=== PATIENT | male | born 1995 ===

== ENCOUNTER 2020-07-12 18:32 | Outpatient (REF) | payer OTHER, SELFPAY | END 2020-07-12 18:33 | disposition home or self-care (01) | LOC: HO.LNP 18:32 | PROVIDERS: Visit Provider Internal Medicine | DX: Z20.822 Contact with and (suspected) exposure to COVID-19 (principal); J06.9 Acute upper respiratory infection, unspecified | CPT/HCPCS: U0003 ==

== ENCOUNTER 2021-03-12 14:28 | Outpatient (REF) | payer OTHER, SELFPAY ==
[2021-03-12 16:38] LABS: Appearance Urine HAZY; Color Urine YELLOW; Glucose Urine UA NEG (NEG); Leukocyte Esterase Urine NEG (NEG); Nitrite Urine NEG (NEG); Urine Blood NEG (NEG); Urine Ketones NEG (NEG); Urine Protein NEG (NEG-TRACE)
[2021-03-12 18:40] LABS: RBC Urine 0 /HPF (0); Squamous Epithelial Cell Urine TRACE /LPF; WBC Urine 0 /HPF (0-4)
[2021-03-12 18:41] LABS: Mucus Urine 4+ /LPF
== END 2021-03-12 14:29 | disposition home or self-care (01) ==
LOC: HO.HMGCLNP 14:28
PROVIDERS: Visit Provider Internal Medicine
DX: R20.8 Other disturbances of skin sensation (principal)
CPT/HCPCS: 81001

== ENCOUNTER 2021-03-13 09:23 | Emergency (ER) | payer OTHER, SELFPAY ==
--- NOTE | ~2021-03-13 | CT_ITS ---
EXAMINATION: CT ABDOMEN AND PELVIS WITH CONTRAST CLINICAL INFORMATION: Right lower quadrant pain. Diarrhea for 3 to 4 days. Minimal free fluid ultrasound. COMPARISON: None TECHNIQUE: Multidetector volumetric images were obtained from the superior aspect of the liver through the pubic symphysis following administration 85 mL of Omnipaque 350 intravenous contrast. Sagittal and coronal reformatted images were obtained on the technologist's workstation. Oral contrast: No This CT examination was performed using dose optimization techniques as appropriate, variously including the following: *Automated exposure control *Adjustment of mA and/or kV according to patient size (this includes techniques or standardized protocols for targeted exams where dose is matched to indication/reason for exam; i.e. extremities or head) *Use of iterative reconstruction technique DLP: 334 mGy-cm FINDINGS: LUNG BASES: The lung bases are clear. The heart size is normal. LIVER, GALLBLADDER, AND BILIARY TREE: The liver is normal in size, shape, and attenuation. No focal hepatic lesion or biliary ductal dilatation is present. The gallbladder is unremarkable with no evidence of radiopaque gallstones, gallbladder wall thickening, or obvious pericholecystic inflammatory changes. PANCREAS: Unremarkable. SPLEEN: Unremarkable. ADRENAL GLANDS: Unremarkable. KIDNEYS AND URETERS: The kidneys are normal in size, shape, and attenuation. No hydronephrosis, hydroureter, or calculi seen. No perinephric stranding. BLADDER: Unremarkable. GASTROINTESTINAL TRACT: Mildly dilated fluid-filled loop of small bowel/distal ileum is seen extending to the ileocecal junction. Nonspecific minimal mural thickening seen involving the distal ileum and coronal image 29/7. This could be secondary to inflammatory infectious etiology. Appendix is not seen. There is no free fluid seen at this time. Free fluid seen on ultrasound likely was a dilated fluid-filled small bowel loops. Appendix is not visualized. Moderate stool is seen throughout the colon. The ileocecal valve is best visualized on sagittal image 74/8 ABDOMINAL WALL: No significant hernia is appreciated. LYMPH NODES: Small shotty lymph nodes are seen in the ileocecal mesentery VASCULAR: Unremarkable. PELVIC VISCERA: Unremarkable. OSSEOUS STRUCTURES: Unremarkable. CT/CT abdomen pelvis w con IMPRESSION: Slightly prominent fluid-filled distal ileal small bowel loops with mild mural thickening involving the terminal ileum, suspicious for inflammatory or infectious etiology. There are small reactive lymph nodes. There is moderate constipation. No free fluid is seen at this time. There are fluid-filled small bowel loops surrounding the cecum in the pelvis. Appendix is not seen. No fat stranding seen to suspect any inflammatory changes in the mesentery. Consider follow-up exam in one to 2 weeks with oral contrast to evaluate small bowel inflammatory or infectious etiology.
--- NOTE | ~2021-03-13 | US_ITS ---
EXAMINATION: ULTRASOUND APPENDIX: CLINICAL INFORMATION: Right lower quadrant pain. COMPARISON: None TECHNIQUE: Limited imaging through the right lower quadrant is performed. FINDINGS: Appendix is not visualized. There is moderate stool seen in cecum and ascending colon. Peristaltic bowel loops are visualized as well. Small amount of free fluid is visualized is well surrounding the cecum. US/US appendix IMPRESSION: Minimal free fluid in the right lower quadrant with appendix not visualized. Appendicitis cannot be excluded. The large amount of stool in the right colon and the cecum region with peristaltic bowel.
[2021-03-13 09:31] VITALS: BP 141/87; PULSE 72; RESP 16; O2SAT 99; BMI 21.4
--- NOTE | 2021-03-13 09:50 | ED_ITS ---
HPI - Back Pain/Injury General Chief Complaint: Back Pain/Injury Stated Complaint: BACK PAIN Time Seen by Provider: 03/13/21 09:36 Source: patient Mode of arrival: ambulatory Limitations: no limitations History of Present Illness HPI Narrative: 25 y/o female with no medical problems presents to the ER with multiple complaints. He reports on Wednesday he started having intermittnet RLQ pain. He was seen at Urgent Care, had a negative UA and sent home. The pain still come and goes but it is overall better. He also reports worsening back pain, starting from his posterior shoulders and going all the way down his back, worse with movement. When he laid down last night he had 5 minutes of his toes tingling like they were asleep, now resolved. He denies any injuries. No fevers, chills, N/V/D, or urinary symptoms. 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 MD elicited complaint: back pain Onset (ago): day(s) (3) Timing: progressively worsening Severity: moderate Similar Symptoms Previously: No Quality: aching and spasming Location: right lower back, right upper back, left upper back and left lower back Radiation: none Exacerbating factors: movement Relieving factors: immobilization and supine Context: unknown Associated symptoms: abdominal pain Work related injury: No Related Data Previous Rx's Medication Instructions Recorded cyclobenzaprine 5 mg tablet 5 mg PO TID PRN #8 tab 03/13/21 ibuprofen 100 mg/5 mL oral 600 mg PO Q8H PRN #400 ml 03/13/21 suspension lidocaine 5 % topical patch 1 patch TOPICAL DAILY #15 ea 03/13/21 (Lidoderm) Allergies Allergy/AdvReac Type Severity Reaction Status Date / Time No Known Allergies Allergy Verified 07/12/20 16:22 [No Known Allergies*] Review of Systems Review of Systems: Constitutional: No Fever, No Chills ENT/Mouth: No sore throat, No Rhinorrhea, No Swallowing Difficulty Cardiovascular: No Chest Pain, No SOB, No Orthopnea, No Edema Respiratory: No Cough, No Sputum, No Wheezing, No dyspnea Gastrointestinal: No Nausea, No Vomiting, + Diarrhea, + abdominal Pain, No Hematochezia, No Melena Genitourinary: No Dysuria, No Urinary Frequency, No Hematuria Musculoskeletal: No joint pain, + Myalgias Skin: No Skin Lesions, No rash Neuro: No Weakness, + Numbness, No Dizziness, No Headache Psych: No Anxiety/Panic, No Depression Heme/Lymph: No Bruising, No Lymphadenopathy Endocrine: No Polyuria, No Polydipsia PMF Past Medical History Medical History (Updated 03/13/21 @ 12:17 by ARABELLA Flores) No known health problems Social History Social History (Updated 07/12/20 @ 16:22 by Ashanti Carrera CMA) Alcohol intake: current Alcohol intake frequency: a few times a month Advance Directives: No Physical Exam Vital Signs: Vital Signs: Last Vital Signs Temp 98.0 F 03/13/21 11:28 Pulse 74 03/13/21 11:28 Resp 18 03/13/21 11:28 BP 126/84 03/13/21 11:28 Pulse Ox 99 03/13/21 11:28 Body Mass Index 21.4 Appearance: Alert. Oriented X3. No acute distress. Eyes: Pupils equal, round and reactive to light. ENT: Pharynx normal. Neck: Normal inspection. Neck supple. CVS: Normal heart rate and rhythm. Pulses normal. Respiratory: No respiratory distress. Breath sounds normal. Abdomen: Soft with mild tenderness to RLQ to deep palpation, no rebound or guarding. +BS x4 Back: no CVA tenderness. soft tissue tenderness of the paraspinous muscles. no spinal tenderness. normal ROM. Skin: Skin warm and dry. Normal skin color. Normal skin turgor. No rashes. Extremities: No lower extremity edema. Neuro: Oriented X 3. No motor deficit. No sensory deficit. Steady gait. Course Course Course Narrative: 25 y/o male presenting with RLQ pain and back pains since Wednesday. No N/V or fevers. Tender to deep palpation only. Doubt acute appenditicis but will get basic labs to start and look for leukocytosis as well as appendix U/S, he is thin. His back pain seems to be muscular in nature with paraspinous muscle tenderness. No limits in ROM. No neck pain. He appears well. Reevaluation(s) Reevaluation #1: Appendix U/S showing some free fluid cannot visualize the appendix. CT scan ordered. Reevaluation #2: Spoke with Dr. Gray - terminal ileum thickening with constipation and some fluid filled loops of small bowel. ?Crohn's disease. Results discussed with patient and mom at the bedside. He has had no bloody BM's, vomiting. Will refer to GI for further workup. They will call today to arrange an appointment. Stable for discharge. MDM - Back Pain/Injury Lab Data Result diagrams: 03/13/21 10:03 03/13/21 10:03 Labs: Lab Results 03/13/21 03/13/21 Range/Units 10:03 10:03 WBC 8.0 (4.8-10.8) X10*3/uL RBC 5.09 (4.60-5.80) X10*6/uL Hgb 14.7 (14.0-18.0) g/dl Hct 44.6 (42-52) % MCV 87.6 (80-98) fL MCH 28.9 (27.0-33.0) pg MCHC 33.0 (31.0-36.0) g/dl RDW 12.8 (11.0-16.0) % Plt Count 234 (160-400) X10*3/uL MPV 10.2 (9.4-12.4) fL Immature Gran % (Auto) 0.2 (0.0-0.4) % Neut % (Auto) 67.9 (45-73) % Lymph % (Auto) 18.0 L (20-40) % [place] % (Auto) 12.6 H (2-11) % Eos % (Auto) 1.2 (0-4) % Baso % (Auto) 0.1 (0-2) % Lymph # (Auto) 1.4 (1.2-4.9) X10*3/uL [place] # (Auto) 1.0 (0.1-1.2) X10*3/uL Eos # (Auto) 0.1 (0.0-0.4) X10*3/uL Baso # (Auto) 0.0 (0.0-0.2) X10*3/uL Abs Immat Gran (auto) 0.02 (0.00-0.03) X10*3/uL Absolute Neuts (auto) 5.4 (2.0-8.3) X10*3/uL Absolute Nucleated RBC 0.000 (0.0-0.012) X10*3/uL Nucleated RBC % (auto) 0.0 (0.0-0.2) /100WBC Sodium 138 (135-145) mmol/L Potassium 4.3 (3.3-5.1) mmol/L Chloride 104 (96-108) mmol/L Carbon Dioxide 28 (22-29) mmol/L Anion Gap 10 L (12-20) BUN 13 (9-16) mg/dL Creatinine 0.83 (0.5-1.4) mg/dL Estim Creat Clear Calc 115.0 Estimated GFR > 60 Random Glucose 88 (60-115) mg/dL Calcium 9.8 (8.4-10.2) mg/dL Total Bilirubin 0.6 (0.0-1.0) mg/dL Direct Bilirubin 0.2 (0.0-0.5) mg/dL AST 17 (5-37) U/L ALT 13 (0-40) U/L Alkaline Phosphatase 56 (39-117) U/L Total Protein 7.4 (6.5-8.0) g/dL Albumin 4.4 (3.5-5.0) g/dL Discharge Plan Discharge Clinical Impression: Abnormal computed tomography of cecum and terminal ileum, Muscle strain of upper back Patient Disposition: Home, Self-Care Instructions: Abdominal Pain (ED), Musculoskeletal Pain (ED) Additional Instructions: Your CT scan showed thickening of a portion of your small bowel. This can be seen inflammatory bowel disease like Crohn's. You need to be further evaluated for this by GI Specialist, name and number listed below. Your CT scan also showed moderate constipation - recommend trial of Miralax, found over the counter. Your back pain is muscular. No bending, lifting or twisting. Use ice several times per day for 20 minutes at a time for the next 48 hours and then change to heat. Take medications as prescribed to help with pain and discomfort. Follow up with your Primary Care Doctor this week. If you develop new or worsening symptoms call 911 or come back to the ER for further evaluation. Prescriptions: New cyclobenzaprine 5 mg tablet 5 mg PO TID PRN (Reason: muscle spasm) Qty: 8 RF: 0 ibuprofen 100 mg/5 mL suspension 600 mg PO Q8H PRN (Reason: pain) Qty: 400 RF: 0 lidocaine [Lidoderm] 5 % adhesive patch,medicated 1 patch topical DAILY Qty: 15 RF: 0 Referrals: Toan Morelos [Physician] - 2 days (abdominal pain abnormal CT - terminal ileum thickening concern for Crohn's) Stand Alone Forms: Work/School Release Interventions: ED Discharge Assessment Last Done: 03/13/21 12:37 Discharge Date/Time: 03/13/21 12:37
[2021-03-13 10:06] LABS: MANUAL DIFF FLAG NO
[2021-03-13 10:09] LABS: Basophils Percent Auto 0.1 % (0-2); Eosinophils Absolute Auto 0.1 X10*3/uL (0.0-0.4); Eosinophils Percent Auto 1.2 % (0-4); Hematocrit 44.6 % (42-52); Hemoglobin 14.7 g/dl (14.0-18.0); Imm Gran Abs Auto 0.02 X10*3/uL (0.00-0.03); Imm Gran Pct Auto 0.2 % (0.0-0.4); Lymphocytes Absolute Auto 1.4 X10*3/uL (1.2-4.9); Mean Corpuscular Hemoglobin 28.9 pg (27.0-33.0); Mean Corpuscular Volume 87.6 fL (80-98); Mean Platelet Volume 10.2 fL (9.4-12.4); Monocytes Percent Auto 12.6 % (2-11); Neutrophils Absolute Auto 5.4 X10*3/uL (2.0-8.3); Neutrophils Percent Auto 67.9 % (45-73); Platelet Count 234 X10*3/uL (160-400); Red Blood Count 5.09 X10*6/uL (4.60-5.80); Red Cell Distribution Width 12.8 % (11.0-16.0)
[2021-03-13 10:24] LABS: Alanine Aminotransferase 13 U/L (0-40); Albumin Level 4.4 g/dL (3.5-5.0); Alkaline Phosphatase 56 U/L (39-117); Anion Gap 10 (12-20); Aspartate Amino Transferase 17 U/L (5-37); Bilirubin Direct 0.2 mg/dL (0.0-0.5); Bilirubin Total 0.6 mg/dL (0.0-1.0); Blood Urea Nitrogen 13 mg/dL (9-16); Calcium 9.8 mg/dL (8.4-10.2); Carbon Dioxide 28 mmol/L (22-29); Chloride 104 mmol/L (96-108); Estimated Glomerular Filt Rate > 60; Glucose Random 88 mg/dL (60-115); Potassium 4.3 mmol/L (3.3-5.1); Sodium 138 mmol/L (135-145); Total Protein 7.4 g/dL (6.5-8.0)
--- NOTE | 2021-03-13 10:51 | PC.NURSE ---
PT PRESENTING WITH RLQ ABD PAIN 4/10. NO NAUSEA OR VOMITING.
[2021-03-13 11:28] VITALS: BP 126/84; PULSE 74; RESP 18; TEMP 36.7; O2SAT 99
[2021-03-13] MEDS: iohexoL 350 MG/ML 100 ML INFUS..BTL 85 ML IV (11:28)
== END 2021-03-13 12:37 | disposition home or self-care (01) ==
PROVIDERS: Physician Assistant; Emergency Provider Emergency Medicine; PCP Internal Medicine
DX: S29.012A Strain of muscle and tendon of back wall of thorax, initial encounter (principal); R93.3 Abnormal findings on diagnostic imaging of other parts of digestive tract; X50.0XXA Overexertion from strenuous movement or load, initial encounter; Y93.89 Activity, other specified; Y92.63 Factory as the place of occurrence of the external cause; Y99.0 Civilian activity done for income or pay
CPT/HCPCS: 36415; 74177; 76705; 80048; 80076; 85025; 99283; 99284; Q9967

== ENCOUNTER → 2021-06-06 09:19 | Outpatient (BNVA) | payer OTHER, SELFPAY | PROVIDERS: PCP Internal Medicine; Referring Provider Internal Medicine; Visit Provider Internal Medicine Gastroenterology ==

== ENCOUNTER 2021-07-07 09:21 | Outpatient (REF) | payer OTHER, SELFPAY | END 2021-07-07 09:22 | disposition home or self-care (01) | LOC: HO.CT 09:21 | PROVIDERS: PCP Internal Medicine; Visit Provider Internal Medicine Gastroenterology | DX: Z13.89 Encounter for screening for other disorder (principal) ==

== ENCOUNTER 2021-08-11 08:08 | Outpatient (REF) | payer OTHER, SELFPAY ==
--- NOTE | ~2021-08-11 | CT_ITS ---
EXAMINATION: CT ABDOMEN AND PELVIS WITH CONTRAST CLINICAL INFORMATION: IBD COMPARISON: CT abdomen pelvis 03/13/2021 TECHNIQUE: Multidetector volumetric images were obtained from the superior aspect of the liver through the pubic symphysis following administration 85 mL of Omnipaque 350 intravenous contrast. Sagittal and coronal reformatted images were obtained on the technologist's workstation. This CT examination was performed using dose optimization techniques as appropriate, variously including the following: *Automated exposure control *Adjustment of mA and/or kV according to patient size (this includes techniques or standardized protocols for targeted exams where dose is matched to indication/reason for exam; i.e. extremities or head) *Use of iterative reconstruction technique DLP: 211 mGy-cm FINDINGS: Visualized lung bases are well aerated. The liver demonstrates normal size, contour and attenuation. The gallbladder is normal in appearance. The pancreas, spleen and adrenal glands are unremarkable. Symmetrically enhancing kidneys. There is no hydronephrosis of either kidney. Debris-filled stomach. Normal caliber loops of small and large bowel. Colon appears primarily fluid-filled, nonspecific. Normal appendix. Normal caliber abdominal aorta. No gross retroperitoneal lymphadenopathy. The bladder is well-distended and normal in appearance. Prostate gland is normal in size. No gross free pelvic fluid. No inguinal lymphadenopathy. No acute osseous abnormality. CT/CT abdomen pelvis w con IMPRESSION: No CT evidence for acute abnormality within the abdomen or pelvis. Fleischner guidelines were followed.
[2021-08-11] MEDS: iohexoL 350 MG/ML 100 ML INFUS..BTL IV (09:41)
[2021-08-11] MEDS: Sorbitol/Mannit/Xanth Imaging 500 ML LIQUID 1500 ML PO (09:42)
== END 2021-08-11 08:09 | disposition home or self-care (01) ==
LOC: HO.CT 08:08
PROVIDERS: PCP Internal Medicine; Visit Provider Internal Medicine Gastroenterology
DX: K63.9 Disease of intestine, unspecified (principal)
CPT/HCPCS: 74177; Q9967

== ENCOUNTER 2023-07-28 18:11 | Emergency (ER) | payer OTHER, SELFPAY ==
--- NOTE | 2023-07-28 19:03 | ED.MALEGU ---
HPI - Male Genitourinary General Chief complaint: General Medical Stated complaint: groin pain Time Seen by Provider: 07/28/23 22:38 Source: patient Mode of arrival: ambulatory Limitations: no limitations History of Present Illness HPI Narrative: 28-year-old male who presents emergency department for evaluation of left lower quadrant pain nausea and lower back pain. Patient states that his symptoms began suddenly on Wednesday, 4 days prior to evaluation patient states that he was in bed when the pain started. He states the pain came on gradually and eventually became a moderate, sharp pain. He states the pain is been constant but is improved. The patient had nausea but no vomiting. He did note urinary frequency but denies dysuria. He denied any penile discharge-she is sexually active. He denied testicular pain. He did not take any medications for his pain. Related Data Home Medications Medication Instructions Recorded Confirmed lidocaine 5 % topical patch 1 patch topical DAILY PRN 03/17/22 (Lidoderm) Allergies Allergy/AdvReac Type Severity Reaction Status Date / Time No Known Allergies Allergy Verified 07/28/23 19:04 [No Known Allergies*] Review of Systems Review of Systems: Yes all other systems are reviewed and are negative [facility] Past Medical History [facility] Narrative: Past medical history: None. Surgical history: None. Social history: He denies tobacco, alcohol and drug use Medical History Constipation Surgical History No history of previous surgery Family History Family History Mother No problems noted. Father Active asthma Gall bladder pain Family/Other Heart problem Social History Social History Housing: House Alcohol intake: current Alcohol intake frequency: holidays/special occasions only Patient Tobacco Use Status: Never used Tobacco Second Hand Smoke Exposure: Yes Advance Directives: No Advance Directives Information Provided: No service: No Current occupational status: employed Cognitive needs: No Hearing needs: No Vision needs: No Physical Exam Vital Signs: Vital Signs: Last Vital Signs Temp 98.5 F 07/28/23 19:04 Pulse 84 07/28/23 19:04 Resp 16 07/28/23 19:04 BP 114/86 07/28/23 19:04 Pulse Ox 98 07/28/23 19:04 O2 Del Method Room Air 07/28/23 19:04 BMI result Body Mass Index 23.4 Vital signs were normal Exam: General: Awake, alert in no distress Head: Normocephalic, atraumatic EENT: PERRL, Lids normal, sclera normal, conjunctiva normal, nose normal , ears normal, throat without erythema or exudates Neck: Supple, no adenopathy, no trachea midline or C-spine tenderness Lung: breath sounds symmetric, no wheezing, rales or rhonchi Chest: symmetric movement, nontender Heart: regular rate and rhythm, normal S1, S2 no murmurs or rubs Abdomen: soft, non-tender, nondistended, normal bowel sounds, no voluntary or involuntary guarding exam: Uncircumcised male penis, no penile lesions, no urethral discharge, testicles descended with no tenderness Back: no vertebral tenderness, no CVAT Extremities: no deformities, moves all extremities symmetrically Neuro: Awake, alert, oriented, normal speech, moves all extremities symmetrically Psych: Pleasant, cooperative Course Course Course Narrative: RME: 28 year-old M w/no sig PMHx presenting to the ED c/o lower abdominal > LLQ x Wednesday night w/nausea & yesterday had low back pain. Denies testicular pain at present, or emesis abdomen soft, w/mild suprapubic ttp Labs, UA, CTNG ordered Full HPI, ROS and PE to be performed by primary ED provider. Medical Decision Making Medical Decision Making [facility] Narrative: 28-year-old male who presents emergency department for evaluation of left lower quadrant and flank pain, nausea, frequency x4 days. Pain came on gradually and got more severe but now has improved but is still present. Patient did have dysuria. He is sexually active, he has had no penile discharge or testicular pain. Vital signs were normal. Examination was unremarkable. My interpretation patient's laboratory evaluation is as follows: CBC was normal. CMP was normal. Urinalysis was negative. GC and chlamydia urine testing pending At this time I do not have a clear etiology for the patient's pain I did discuss this with him. Patient was advised to take ibuprofen 400 mg 3 times a day for the next 4 days. He was given a work note and printed and verbal instructions. Patient was discharged home. Differential Diagnosis Differential Diagnoses: The differential diagnosis associated with the presentation includes Differential diagnosis includes was not limited to urinary tract infection, renal colic, ureteral colic, STD Admission/Observation Consideration of admission/observation: Escalation of care including admission/observation considered Lab Data MDM Lab Attestation statement: I reviewed the patient's lab results. 07/28/23 19:33 07/28/23 19:33 Labs: Lab Results 07/28/23 Range/Units 19:33 WBC 6.0 (4.8-10.8) X10*3/uL RBC 5.07 (4.60-5.80) X10*6/uL Hgb 14.3 (14.0-18.0) g/dl Hct 44.3 (42.0-52.0) % MCV 87.4 (80.0-98.0) fL MCH 28.2 (27.0-33.0) pg MCHC 32.3 (31.0-36.0) g/dl RDW 13.1 (11.0-16.0) % Plt Count 276 (160-400) X10*3/uL MPV 10.5 (9.4-12.4) fL Immature Gran % (Auto) 0.2 (0.0-0.4) % Neut % (Auto) 67.6 (45-73) % Lymph % (Auto) 20.8 (20-40) % [place] % (Auto) 10.3 (2-11) % Eos % (Auto) 0.8 (0-4) % Baso % (Auto) 0.3 (0-2) % Lymph # (Auto) 1.3 (1.2-4.9) X10*3/uL [place] # (Auto) 0.6 (0.1-1.2) X10*3/uL Eos # (Auto) 0.1 (0.0-0.4) X10*3/uL Baso # (Auto) 0.0 (0.0-0.2) X10*3/uL Abs Immat Gran (auto) 0.01 (0.00-0.03) X10*3/uL Absolute Neuts (auto) 4.1 (2.0-8.3) x10*3/uL Absolute Nucleated RBC 0.000 (0.0-0.012) X10*3/uL Nucleated RBC % (auto) 0.0 (0.0-0.2) /100WBC Sodium 137 (135-145) mmol/L Potassium 4.0 (3.3-5.1) mmol/L Chloride 102 (96-108) mmol/L Carbon Dioxide 28 (22-29) mmol/L Anion Gap 11 L (12-20) BUN 14 (9-16) mg/dL Creatinine 0.70 (0.5-1.4) mg/dL Estim Creat Clear Calc 140.5 Estimated GFR > 60 Random Glucose 100 (60-115) mg/dL Calcium 9.5 (8.4-10.2) mg/dL Magnesium 2.0 (1.6-2.6) mg/dL Total Bilirubin 0.4 (0.0-1.0) mg/dL Direct Bilirubin 0.2 (0.0-0.5) mg/dL AST 22 (5-37) U/L ALT 18 (0-40) U/L Alkaline Phosphatase 60 (39-117) U/L Total Protein 8.0 (6.5-8.0) g/dL Albumin 4.6 (3.5-5.0) g/dL Lipase 24 (8-78) U/L Urine Color Yellow Urine Appearance Clear Urine pH 7.5 (5.0-9.0) Ur Specific [place] <= 1.005 (1.005-1.025) Urine Protein Negative (Neg-Trace) mg/dL Urine Glucose (UA) Negative (Negative) mg/dL Urine Ketones Negative (Negative) mg/dL Urine Blood Negative (Negative) Urine Nitrite Negative (Negative) Ur Leukocyte Esterase Negative (Negative) Discharge Plan Discharge Clinical Impression: Abdominal pain Qualifiers: Abdominal location: left lower quadrant Qualified Code(s): R10.32 - Left lower quadrant pain Patient Disposition: Home, Self-Care Instructions: Abdominal Pain (ED) Additional Instructions: Your laboratory evaluation was unremarkable. Your urinalysis was negative as well. We did test you for gonorrhea and chlamydia-these tests do not come back today but you can check these results on the patient portal. Take ibuprofen 200 mg pills, 2 pills every 6 hours (3 times a day) while awake for the next 4 days to see if this improves your pain Follow-up with your doctor in 2 days. Please return to the emergency department if your symptoms get worse or if you develop any symptoms that are concerning to you. Please see the work note Prescriptions: No Action lidocaine [Lidoderm] 5 % adhesive patch,medicated 1 patch topical DAILY PRN Rx Instructions: leave on most painful area for up to 12 hrs Stand Alone Forms: Work/School Release
[2023-07-28 19:04] VITALS: BP 114/86; PULSE 84; RESP 16; TEMP 36.9; O2SAT 98; BMI 23.4
[2023-07-28 19:43] LABS: MANUAL DIFF FLAG NO
[2023-07-28 19:45] LABS: Appearance Urine Clear; Basophils Percent Auto 0.3 % (0-2); Color Urine Yellow; Eosinophils Absolute Auto 0.1 X10*3/uL (0.0-0.4); Eosinophils Percent Auto 0.8 % (0-4); Glucose Urine UA Negative (Negative); Hematocrit 44.3 % (42.0-52.0); Hemoglobin 14.3 g/dl (14.0-18.0); Imm Gran Abs Auto 0.01 X10*3/uL (0.00-0.03); Imm Gran Pct Auto 0.2 % (0.0-0.4); Leukocyte Esterase Urine Negative (Negative); Lymphocytes Absolute Auto 1.3 X10*3/uL (1.2-4.9); Lymphocytes Percent Auto 20.8 % (20-40); Mean Corpuscular HGB Conc 32.3 g/dl (31.0-36.0); Mean Corpuscular Hemoglobin 28.2 pg (27.0-33.0); Mean Corpuscular Volume 87.4 fL (80.0-98.0); Mean Platelet Volume 10.5 fL (9.4-12.4); Monocytes Absolute Auto 0.6 X10*3/uL (0.1-1.2); Monocytes Percent Auto 10.3 % (2-11); Neutrophils Absolute Auto 4.1 x10*3/uL (2.0-8.3); Neutrophils Percent Auto 67.6 % (45-73); Nitrite Urine Negative (Negative); PH 7.5 (5.0-9.0); Platelet Count 276 X10*3/uL (160-400); Red Blood Count 5.07 X10*6/uL (4.60-5.80); Red Cell Distribution Width 13.1 % (11.0-16.0); Specific Gravity - Urine <= 1.005 (1.005-1.025); Urine Blood Negative (Negative); Urine Ketones Negative (Negative); Urine Protein Negative (Neg-Trace)
[2023-07-28 20:02] LABS: Alanine Aminotransferase 18 U/L (0-40); Albumin Level 4.6 g/dL (3.5-5.0); Alkaline Phosphatase 60 U/L (39-117); Anion Gap 11 (12-20); Aspartate Amino Transferase 22 U/L (5-37); Bilirubin Direct 0.2 mg/dL (0.0-0.5); Bilirubin Total 0.4 mg/dL (0.0-1.0); Blood Urea Nitrogen 14 mg/dL (9-16); Calcium 9.5 mg/dL (8.4-10.2); Carbon Dioxide 28 mmol/L (22-29); Chloride 102 mmol/L (96-108); Creatinine Clr Calc Pharmacy 140.5; Estimated Glomerular Filt Rate > 60; Glucose Random 100 mg/dL (60-115); Lipase 24 U/L (8-78); Sodium 137 mmol/L (135-145)
[2023-07-28 22:56] VITALS: BP 119/76; PULSE 79; O2SAT 98
[2023-07-28] MEDS: Ibuprofen 400 MG TABLET PO (23:02)
[2023-07-29 03:10] LABS: CT PCR NOT DETECTED (Not Detect.); NG PCR NOT DETECTED (Not Detect.)
== END 2023-07-28 23:06 | disposition home or self-care (01) ==
PROVIDERS: Physician Assistant; Emergency Provider Emergency Medicine Emergency Medical Services; PCP Internal Medicine
DX: R10.30 Lower abdominal pain, unspecified (principal); R11.0 Nausea; R35.0 Frequency of micturition; M54.50 Low back pain, unspecified; Z79.899 Other long term (current) drug therapy
CPT/HCPCS: 0353U; 36415; 80048; 80076; 81003; 83690; 83735; 85025; 99283

== ENCOUNTER 2024-01-11 08:39 | Outpatient (AMB) | payer OTHER, SELFPAY ==
[2024-01-11 08:41] VITALS: BP 102/60; PULSE 64; O2SAT 98; BMI 22.1
--- NOTE | 2024-01-11 08:41 | MHC.PC.OV ---
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: No Allergies No Known Allergies [No Known Allergies*] Allergy (Verified 01/11/24 09:06) Medication List - Last Reconciled 01/11/24 by Juan Vega MD No Known Home Meds Tobacco use date assessed: 01/11/24 Dental Screening Dental Screen Date: 01/11/24 Did you have a dental visit in the last 12 months?: No Did you have a dental problem in the last 6 months where you did not have access to dental care?: No HPI Annual F/U HPI Details Patient comes in today for his annual physical examination - was last seen in March 2022 States that he is still experiencing on and off LLQ abdominal pain at this time Relates that he went to the ER earlier this year in July 2023 for the same complaint and had some labs and work ups done in the ER, all of which came back normal States that over the past weekend, he had some watery diarrhea but denies seeing any blood in his stool He denies experiencing any nausea or vomiting over the weekend States that he has not had any bowel movements all day yesterday and today so he is not sure if his diarrhea/loose stools from the past weekend is now completely resolved States that his stomach feels no different than previous - still has on and off LLQ abdominal pain but it has not gotten any worse lately He denies any headaches or dizziness; denies any fever or chills Denies any chest pains, no SOB Denies any acute urinary symptoms He was seeing Dr. Pearce back in 02/2022 for further evaluation of some bowel wall thickening seen in prior imaging studies and was being scheduled for a CT enterography at the time but patient did not return for any follow up again until today [facility] Medical History Constipation Surgical History No history of previous surgery Family History (Updated 01/11/24 @ 09:27 by Juan Vega MD) Mother No problems noted. Father Gall bladder pain Asthma Family/Other Heart problem Social History Housing: House Alcohol intake: current Alcohol intake frequency: holidays/special occasions only Patient Tobacco Use Status: Never used Tobacco Second Hand Smoke Exposure: Yes service: No Current occupational status: employed Cognitive needs: No Hearing needs: No Vision needs: No Questionnaire PHQ-9 Over the last 2 weeks, how often have you been bothered by any of the following problems? 1. Little interest or pleasure in doing things: not at all 2. Feeling down, depressed, or hopeless: not at all 3. Trouble falling or staying asleep, or sleeping too much: not at all 4. Feeling tired or having little energy: not at all 5. Poor appetite or overeating: not at all 6. Feeling bad about yourself - or that you are a failure or have let yourself or your family down: not at all 7. Trouble concentrating on things, such as reading the newspaper or watching television: not at all 8. Moving or speaking so slowly that other people could have noticed. Or the opposite - being so fidgety or restless that you have been moving around a lot more than usual: not at all 9. Thoughts that you would be better off or of hurting yourself in some way: not at all Total score: 0 Depression Screening Interpretation: Negative Depression Screening Done: Yes 28046 - PHQ-9 Billing: Yes Source: Developed by Drs. Andre العلي, Yanni Fong, Osei Berger and colleagues, with an educational maya from [employer]. Thrive Questionnaire Date Thrive assessed: 01/11/24 I am a: Patient What is your living situation today?: I have a steady place to live Within the past 12 months, did the food you bought not last and you didn't have the money to get more?: Never true Within the past 12 months, did you worry whether your food would run out before you got money to buy more?: Never true Do you have trouble paying for medicines?: No Do you have trouble getting transportation to medical appointments?: No Do you have trouble paying your heating and electricity bill?: No Do you have trouble taking care of your child, family member or friend?: No Do you have trouble with day-to-day activities such as bathing, preparing meals, shopping, managing finances, etc.?: No Are you currently unemployed and looking for a job?: No Are you interested in more education?: No Please select the resources that you would like help with: None Currently or been in a relationship where the following occur: No concerns reported THRIVE Score: 0 AUDIT C Alcohol Use Questionnaire (AUDIT-C) 1. How often do you have a drink containing alcohol?: Monthly or less 2. How many drinks containing alcohol do you have on a typical day when you are drinking?: 1 or 2 3. How often do you have six or more drinks on one occasion?: Never Total Score: 1 Score Reviewed/Action Taken: Yes CRISPIN-7 AMB Questionnaire CRISPIN-7 Date CRISPIN - 7 assessed: 01/11/24 Feeling nervous, anxious, or on edge: 0 = Not at all Not being able to stop or control worryin = Several days (patient states mostly at night ) Worrying too much about different things: 0 = Not at all Trouble relaxin = Not at all Being so restless that it is hard to sit still: 0 = Not at all Becoming easily annoyed or irritable: 0 = Not at all Feeling afraid as if something awful might happen: 0 = Not at all Total CRISPIN-7 score (0-4 normal; 5-9 mild; 10-14 moderate; 15-21 severe): 1 Source: Developed by Drs. Andre العلي, Yanni Fong, Osei Berger and colleagues, with an educational maya from [employer]. CRISPIN-7 Assessment Billing CRISPIN-7 Assessment Tool: CRISPIN-7 Assessment 94646 Review of Systems Const Denies chills, Reports difficulty sleeping (recently), Denies fatigue, Denies fever(s), Denies headache(s), Denies malaise and Denies weakness Eyes Denies blurry vision, Denies change in vision, Denies irritation and Denies itchy eyes ENT Denies dysphagia, Denies dizziness, Denies otalgia, Denies headache(s), Denies nasal congestion, Denies neck pain, Denies odynophagia and Denies sore throat Card Denies chest pain, Denies rapid heart rate, Denies irregular heart rhythm, Denies palpitations and Denies dyspnea Resp Denies chest congestion, Denies cough, Denies dyspnea and Denies wheezing GI Reports abdominal pain (over the LLQ ), Denies bloating, Denies hematochezia, Denies constipation, Denies dysphagia, Denies heartburn, Reports loose stools (over the past weekend), Denies nausea, Denies odynophagia and Denies vomiting Denies hematuria, Denies difficulty urinating, Denies dysuria, Denies urinary frequency and Denies urinary urgency Musc Denies back pain, Denies arthralgias, Denies joint swelling, Denies muscle weakness and Denies neck pain Skin/Breast Denies change in pigmentation, Denies lesions, Denies rash and Denies unusual bruising Neuro Denies dizziness, Denies headache(s), Denies paresthesias and Denies weakness Psych Reports anxiety (lately) Endo Denies fatigue and Denies palpitations Aller/Immun Denies itchy eyes and Denies wheezing Physical exam (Primary Care) Vital Signs: Last Vital Signs Pulse 64 01/11/24 08:41 BP 102/60 01/11/24 08:41 Pulse Ox 98 01/11/24 08:41 Oxygen Delivery Method Room Air 01/11/24 08:41 BMI result Body Mass Index 22.1 Tobacco/Smoking Status: Tobacco use Status Tobacco use date assessed 01/11/24 01/11/24 08:47 Patient Tobacco Use Status Never used Tobacco 01/11/24 08:47 PHQ-9: PHQ-9 Score PHQ-9: Total score 0 01/11/24 08:47 Depression Screening Interpretation: Negative Thrive Assessment: Date of Thrive Assessment Date Thrive assessed 01/11/24 01/11/24 08:47 Currently or been in a relationship where the following occur: No concerns reported Const General: no acute distress, alert and awake Orientation/consciousness: patient oriented x3 HENMT Head: Yes normocephalic and Yes atraumatic Ears: external ears normal, TM's normal bilaterally and EAC's normal General nose exam: No nasal discharge present Face and sinus: Yes normal facial exam and Yes sinuses nontender Teeth and gingiva: dentition normal Throat: Yes posterior oropharynx normal and Yes tonsils normal (no TP congestion) Eyes Eyelids: Yes eyelids normal Conjunctivae: conjunctivae normal Pupils: Equal, round and reactive pupils present EOM: EOMs intact bilaterally Neck Neck: Yes no lymphadenopathy and Yes supple Thyroid: Thyroid normal Resp Auscultation: clear to auscultation bilaterally, no rales and no wheezes Cardio Rate: regular rate Rhythm: regular rhythm Heart sounds: no murmurs GI Palpation (GI): Soft to palpation, Tenderness to palpation present (GI) in the LLQ, no guarding, not rigid, No hepatosplenomegaly present and No Rebound tenderness present Auscultation: normal bowel sounds General: Yes no CVA tenderness Back/Spine/Pelvis Back: no CVA tenderness Thoracic/Lumbar Spine: thoracic and lumbar spine normal to inspection Skin Lesions: no lesions Rashes: no rashes Neuro General: patient oriented x3, moves all extremities, no focal motor deficits and CN's II-XI intact bilaterally Cranial nerves: Yes Equal, round and reactive pupils present Cognition (Neuro): normal cognition Gait exam (Neuro): Normal gait present Extrem General: Yes no clubbing, cyanosis or edema Assessment and Plan Assessment & Plan (1) Annual physical exam: Code(s): Z00.00 - Encounter for general adult medical examination without abnormal findings Plan: Check labs (2) Left lower quadrant abdominal pain of unknown etiology: Code(s): R10.32 - Left lower quadrant pain Plan: Will check some labs and also send him for abdominal x-rays for further evaluation He was being seen by Dr. Pearce back in February 2022 for some bowel wall thickening seen on prior imaging studies and was being sent for a CT enterography for further evaluation but patient was since lost to follow up until now Will refer him back to Dr. Pearce for GI evaluation and management Plan To return in 1 year for his next annual physical examination Orders: Orders Complete Blood Count Auto Diff Today D64.9 - Anemia, unspecified, Z00.00 - Encounter for general adult medical examination without abnormal findings Lipid Panel Today E78.00 - Pure hypercholesterolemia, unspecified, Z00.00 - Encounter for general adult medical examination without abnormal findings Vitamin D 25-OH Total Today E55.9 - Vitamin D deficiency, unspecified, Z00.00 - Encounter for general adult medical examination without abnormal findings Erythrocyte Sedimentation Rate Today K63.9 - Disease of intestine, unspecified, R10.9 - Unspecified abdominal pain C Reactive Protein Today K63.9 - Disease of intestine, unspecified, R10.9 - Unspecified abdominal pain Lipase Today K63.9 - Disease of intestine, unspecified, R10.9 - Unspecified abdominal pain XR abdomen w decubitus Today R10.32 - Left lower quadrant pain Comprehensive [place]. Panel Fast Today E78.00 - Pure hypercholesterolemia, unspecified, Z00.00 - Encounter for general adult medical examination without abnormal findings TSH reflex Free T4 Today E78.00 - Pure hypercholesterolemia, unspecified, Z00.00 - Encounter for general adult medical examination without abnormal findings UA CC w/rflx Micro + Cult Today R30.0 - Dysuria, Z00.00 - Encounter for general adult medical examination without abnormal findings Lactate Dehydrogenase Today K63.9 - Disease of intestine, unspecified Referrals Gastroenterology Referral R10.32 - Left lower quadrant pain Coding Level of Care Code Est Pt Prev Care 18-39y(66082) Diagnoses Annual physical exam Z00.00 Left lower quadrant abdominal pain of unknown etiology R10.32 Additional Codes CRISPIN-7 Assessment Billing - CRISPIN-7 Assessment Tool: CRISPIN-7 Assessment 08463 ([id number])
== END 2024-01-11 09:23 | disposition home or self-care (01) ==
PROVIDERS: PCP Internal Medicine; Visit Provider Internal Medicine
DX: Z00.00 Encounter for general adult medical examination without abnormal findings (principal); R10.32 Left lower quadrant pain
CPT/HCPCS: 99395

== ENCOUNTER 2024-01-11 09:32 | Outpatient (REF) | payer OTHER, SELFPAY ==
--- NOTE | ~2024-01-11 | XR_ITS ---
EXAMINATION: XR ABDOMEN WITH DECUBITUS VIEWS CLINICAL INDICATION: Left lower quadrant pain. COMPARISON: CT abdomen and pelvis of 08/11/2021. TECHNIQUE: Two AP views of the abdomen. FINDINGS: Large amount of stool throughout the colon and rectum. Nonobstructive bowel gas pattern. Rounded pelvic calcifications are likely vascular. Mild rightward curvature of the lumbar spine. XR/XR abdomen w decubitus IMPRESSION: Large amount of stool throughout the colon and rectum. Nonobstructive bowel gas pattern.
[2024-01-11 09:46] LABS: MANUAL DIFF FLAG NO
[2024-01-11 10:22] LABS: Basophils Percent Auto 0.2 % (0-2); Eosinophils Absolute Auto 0.1 X10*3/uL (0.0-0.4); Hematocrit 45.4 % (42.0-52.0); Hemoglobin 14.7 g/dl (14.0-18.0); Imm Gran Abs Auto 0.02 X10*3/uL (0.00-0.03); Imm Gran Pct Auto 0.4 % (0.0-0.4); Lymphocytes Absolute Auto 1.5 X10*3/uL (1.2-4.9); Lymphocytes Percent Auto 33.6 % (20-40); Mean Corpuscular HGB Conc 32.4 g/dl (31.0-36.0); Mean Corpuscular Hemoglobin 28.6 pg (27.0-33.0); Mean Corpuscular Volume 88.3 fL (80.0-98.0); Mean Platelet Volume 10.3 fL (9.4-12.4); Monocytes Absolute Auto 0.6 X10*3/uL (0.1-1.2); Monocytes Percent Auto 12.4 % (2-11); Neutrophils Absolute Auto 2.4 x10*3/uL (2.0-8.3); Neutrophils Percent Auto 51.4 % (45-73); Platelet Count 278 X10*3/uL (160-400); Red Blood Count 5.14 X10*6/uL (4.60-5.80); White Blood Count 4.6 X10*3/uL (4.8-10.8)
[2024-01-11 10:38] LABS: Appearance Urine Clear; Color Urine Yellow; Glucose Urine UA Negative (Negative); Leukocyte Esterase Urine Negative (Negative); Nitrite Urine Negative (Negative); Specific Gravity - Urine 1.015 (1.005-1.025); Urine Blood Negative (Negative); Urine Ketones Negative (Negative); Urine Protein Negative (Neg-Trace)
[2024-01-11 11:09] LABS: Erythrocyte Sedimentation Rate 2 MM/HR (0-15)
[2024-01-11 11:15] LABS: Alanine Aminotransferase 15 U/L (0-40); Albumin Level 4.5 g/dL (3.5-5.0); Alkaline Phosphatase 54 U/L (39-117); Anion Gap 10 (12-20); Aspartate Amino Transferase 18 U/L (5-37); Bilirubin Total 0.9 mg/dL (0.0-1.0); Blood Urea Nitrogen 16 mg/dL (9-16); C Reactive Protein < 0.04 mg/dL (< or = 0.50); Calcium 9.5 mg/dL (8.4-10.2); Carbon Dioxide 31 mmol/L (22-29); Chloride 102 mmol/L (96-108); Cholesterol 181 mg/dL (<200); Estimated Glomerular Filt Rate > 60; Glucose Fasting 95 mg/dL (60-99); HDL Cholesterol 67 mg/dL (>40); LDL Cholesterol Calculated 102 mg/dL (<100); Lipase 21 U/L (8-78); Potassium 4.3 mmol/L (3.3-5.1); Sodium 139 mmol/L (135-145); Total Protein 7.5 g/dL (6.5-8.0); Triglycerides 61 mg/dL (<150)
[2024-01-11 11:26] LABS: TSH reflex Free T4 1.06 uIU/mL (0.32-4.0); Vitamin D 25-OH Total 32.3 ng/mL (>30)
[2024-01-11 11:51] LABS: Lactate Dehydrogenase 178 U/L (118-273)
== END 2024-01-11 09:33 | disposition home or self-care (01) ==
LOC: HO.LAB 09:32
PROVIDERS: PCP Internal Medicine; Visit Provider Internal Medicine
DX: Z00.00 Encounter for general adult medical examination without abnormal findings (principal); R10.32 Left lower quadrant pain; E55.9 Vitamin D deficiency, unspecified; R10.9 Unspecified abdominal pain; K63.9 Disease of intestine, unspecified; D64.9 Anemia, unspecified; E78.00 Pure hypercholesterolemia, unspecified; R30.0 Dysuria
CPT/HCPCS: 36415; 74021; 80053; 80061; 81003; 82306; 83615; 83690; 84443; 85025; 85652; 86140

== ENCOUNTER 2024-03-20 10:05 | Outpatient (AMB) | payer OTHER, SELFPAY ==
--- NOTE | 2024-03-20 10:13 | MHC.OFFVIS ---
Vital Signs 03/20/24 10:14 Height 5 ft 6 in Weight 138 lb 14.259 oz BMI 22.4 BP 114/68 Blood Pressure Location Lt brachial Position Sitting Pulse 69 Intake Visit Reasons: Follow up Bowel wall thickening Intake Note: Stephen presents in the office as a follow up for his thickening of the bowel wall. CC: He states that he is not taking any medications - he states he is not having any concerns other than he wants to have a colonoscopy to be on the safe side. He was getting pains on the LLQ but he states it may be something that is related to constipation. He had diarrhea but states that he mostly remains on the constipated side - denies any blood when he has a BM. 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: No Allergies No Known Allergies [No Known Allergies*] Allergy (Verified 03/20/24 10:27) HPI HPI Follow up Bowel wall thickening: Details: 28 yr old m being seen for f/u RECAP: he came to ED 03/2021 with abdominal pain it was RLQ pain without radiation it was 8 /10 in severity lasted for 1 week no nausea or vomiting with it had diarrhea\ he was given muscle relaxants, ibuprofen LABS: 03/2021-- CBC, BMP nml CT with fluid filled loops of small bowel mariaelena distal ileum with thickening CT 08/2021- normal, no acute findings INTERIM: He had one episode of left lower abdominal pain, not there now he has noted constipation which is new for him which alternates with soft stools, in a sequence no blood in stools no nsaid use appetite is good weight is steady no mouth ulcers or joint pains he is worried abt gallstones, he has occ ruq pain, more stabbing recent labs 01/25-- TSH nml, HGB nml, CMP- nml EXAM: GENERAL: The patient is well developed and nontoxic. VITAL SIGNS:see workflow HEENT: Nonicteric sclerae, PERRLA, EOMI. Oropharynx clear. Moist mucous membranes. Conjunctivae appear well perfused. No thyroid mass. CHEST: Chest wall is nontender. HEART: Regular rate and rhythm without murmurs. LUNGS: Clear to auscultation bilaterally. ABDOMEN: Soft, positive bowel sounds, nontender, no organomegaly.no flank tenderness SKIN: No rash, no excessive bruising, petechiae, or purpura. NEUROLOGIC: Cranial nerves II-XII intact without motor/sensory deficit. psych --nml A/P: 1/ Altered bowel habit 2/ RUQ pain, but neg physical exam PLAN: 1/ US RUQ 2/ colonoscopy neg TSH r/o colonic pathology --[facility] Medical History Constipation Surgical History No history of previous surgery Family History Mother No problems noted. Father Gall bladder pain Asthma Family/Other Heart problem Social History Housing: House Alcohol intake: current Alcohol intake frequency: holidays/special occasions only Patient Tobacco Use Status: Never used Tobacco Second Hand Smoke Exposure: Yes service: No Current occupational status: employed Cognitive needs: No Hearing needs: No Vision needs: No Physical Exam Vital Signs: Last Vital Signs Pulse 69 03/20/24 10:14 BP 114/68 03/20/24 10:14 BMI result Body Mass Index 22.4 Assessment & Plan Assessment & Plan (1) RUQ pain: Code(s): R10.11 - Right upper quadrant pain Category: Medical Plan: see above Orders: Orders US abdomen complete Today R10.11 - Right upper quadrant pain Medications: New sodium,potassium,mag sulfates 17.5-3.13-1.6 gram ([facility] Bowel Prep Kit) DILUTE; drink 1/2 at 6-8 pm and half at 11 PM- 1AM 354 mL 0RF Coding Level of Care Code Est Pt Level 4 (12870) Diagnoses RUQ pain R10.11
[2024-03-20 10:14] VITALS: BP 114/68; PULSE 69; BMI 22.4
== END 2024-03-20 10:47 | disposition home or self-care (01) ==
PROVIDERS: PCP Internal Medicine; Visit Provider Internal Medicine Gastroenterology
DX: R10.11 Right upper quadrant pain (principal)
CPT/HCPCS: 99214

== ENCOUNTER → 2024-03-20 10:05 | Outpatient (BNVA) | payer OTHER, SELFPAY | PROVIDERS: PCP Internal Medicine; Visit Provider Internal Medicine Gastroenterology ==

== ENCOUNTER 2024-03-27 08:40 | Outpatient (REF) | payer OTHER, SELFPAY ==
--- NOTE | ~2024-03-27 | US_ITS ---
EXAMINATION: US ABDOMEN COMPLETE CLINICAL INFORMATION: Right upper quadrant pain. COMPARISON: X-ray abdomen 01/11/2024. CT abdomen and pelvis 08/11/2021. TECHNIQUE: Real-time imaging of the abdominal viscera. FINDINGS: PANCREAS: Normal. ABDOMINAL AORTA: The proximal, mid, and distal segments are normal in caliber. INFERIOR VENA CAVA: Visualized portions are normal. LIVER: Normal. The liver is normal in size. The liver contour is normal. Parenchymal echogenicity is normal. No focal hepatic lesion. There is no intrahepatic biliary duct dilatation seen. GALLBLADDER: The gallbladder is physiologically distended without evidence of wall thickening or pericholecystic fluid. Multiple up to 3 mm polyps versus adherent stones are noted. Negative Carrillo's sign. COMMON BILE DUCT: Normal in caliber measuring 0.2 cm in diameter. RIGHT KIDNEY: Normal. No hydronephrosis. No renal calculi or focal parenchymal lesions. The kidney measures 11.6 cm in maximum dimension. LEFT KIDNEY: Normal. No hydronephrosis. No renal calculi or focal parenchymal lesions. The kidney measures 11.2 cm in maximum dimension. SPLEEN: Normal. The spleen measures 10.0 cm in maximum dimension. FREE FLUID: None. US/US abdomen complete IMPRESSION: Multiple gallbladder polyps versus adherent stones measuring up to 3 mm. Consider follow-up with ultrasound in 6-12 months. Electronically signed by: Sudha Up MD 03/30/2024 12:50 PM EDT
== END 2024-03-27 08:41 | disposition home or self-care (01) ==
LOC: HO.US 08:40
PROVIDERS: PCP Internal Medicine; Visit Provider Internal Medicine Gastroenterology
DX: R10.11 Right upper quadrant pain (principal)
CPT/HCPCS: 76700

== ENCOUNTER 2024-04-18 15:01 | Outpatient (AMB) | payer OTHER, SELFPAY ==
--- NOTE | 2024-04-18 15:08 | MHC.OFFVIS ---
Vital Signs 04/18/24 15:22 Height 5 ft 6 in Weight 141 lb 2 oz BMI 22.8 BP 116/68 Blood Pressure Location Lt brachial Position Sitting Pulse 73 Intake Visit Reasons: RUQ pain Intake Note: Patient is seen in office for evaluation of RUQ pain. 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 The pain seems to be associated with fatty food intake in his occasionally associated with nausea without vomiting. He denies fever or chills. The pain usually begins an hour or 2 following his intake of food. He also reports diarrhea without bleeding. He reports the symptoms occur several times per week in his most recent episode was this weekend. Workup with ultrasound of the abdomen revealed multiple small polyps or gallstones in the wall of the gallbladder. There was a negative sonographic Carrillo sign. He presents today to discuss possible cholecystectomy. [facility] Medical History Constipation Surgical History No history of previous surgery Family History Mother No problems noted. Father Gall bladder pain Asthma Family/Other Heart problem Social History Housing: House Alcohol intake: current Alcohol intake frequency: holidays/special occasions only Patient Tobacco Use Status: Never used Tobacco Second Hand Smoke Exposure: Yes service: No Current occupational status: employed Cognitive needs: No Hearing needs: No Vision needs: No Review of Systems Const All systems reviewed & are unremarkable except as noted in HPI and below Physical Exam Vital Signs: Last Vital Signs Pulse 73 04/18/24 15:22 BP 116/68 04/18/24 15:22 BMI result Body Mass Index 22.8 Const General: cooperative and no acute distress Nutritional Appearance: well nourished Orientation/consciousness: patient oriented x3 Limitations: no limitations HEENT Head: Yes normocephalic and Yes atraumatic Ears: hearing grossly normal bilaterally Resp Effort & Inspection: normal respiratory effort, no audible wheezes, no cough and no respiratory distress Cardio Jugular venous distension: no JVD GI Other: Negative Carrillo sign Inspection: Yes normal to inspection Palpation (GI): Soft to palpation, nontender, no guarding and not rigid Skin Other: Warm, dry, no rash Neuro General: patient oriented x3 Extrem General: Yes no clubbing, cyanosis or edema Assessment & Plan Assessment & Plan (1) RUQ pain: Code(s): R10.11 - Right upper quadrant pain Category: Medical Plan 28-year-old male patient returning with complaints of right upper quadrant abdominal pain radiating to the back which seems to be associated with fatty food intake. Ultrasound of the abdomen revealed multiple small (3 mm) polyps or stones in the wall of the gallbladder. Examination today revealed no significant tenderness and a negative Carrillo sign. The patient does seem to have classic gallbladder symptoms although his ultrasound only reveals the small polyps. We discussed laparoscopic cholecystectomy as a possible option along with the risks and benefits. It is difficult to know if his symptoms will improve. He will think about his options and call us should he wish to schedule the surgery or talk further about the surgery. Coding Level of Care Code New Pt Level 4 (19561) Diagnoses RUQ pain R10.11
[2024-04-18 15:22] VITALS: BP 116/68; PULSE 73; BMI 22.8
== END 2024-04-18 15:50 | disposition home or self-care (01) ==
PROVIDERS: PCP Internal Medicine; Visit Provider Surgery
DX: R10.11 Right upper quadrant pain (principal)
CPT/HCPCS: 99204

== ENCOUNTER → 2024-04-18 15:01 | Outpatient (BNVA) | payer OTHER, SELFPAY | PROVIDERS: PCP Internal Medicine; Visit Provider Surgery ==

== ENCOUNTER 2024-07-20 08:04 | Day surgery (SDC) | payer OTHER, SELFPAY ==
[2024-07-18 14:08] VITALS: BMI 22.4
--- NOTE | 2024-07-19 09:38 | P.CONAN_ITS ---
Documented by User: Mony Cobos NP 07/19/24 09:38 HPI - Anesthesia Eval Consult details Narrative: 29yo M for Colonoscopy [facility] Active Problems Active Problems: All Active Problems RUQ pain (Acute) Left lower quadrant abdominal pain of unknown etiology (Acute) Congestion of right ear (Acute) Annual physical exam (Acute) Bowel wall thickening (Acute) Viral gastroenteritis (Acute) Viral upper respiratory illness (Acute) Constipation (Acute) Past Medical History Medical History (Updated 07/18/24 @ 14:07 by Caitlyn Kenney RN) Abdominal pain Constipation Family History Family History Mother No problems noted. Father Gall bladder pain Asthma Family/Other Heart problem Surgical History Surgical History No history of previous surgery Social History Social History Housing: House Alcohol intake: current Alcohol intake frequency: does not drink Patient Tobacco Use Status: Never used Tobacco Second Hand Smoke Exposure: Yes Have you been hit, kicked, punched, or otherwise hurt by someone within the past year? If so, by whom?: No Are you DNR?: No Advance Directives: No Advance Directives Information Provided: Yes Nutrition Risks: No Nutritional Risk service: No Current occupational status: employed Cognitive needs: No Hearing needs: No Vision needs: No Meds Allergies Allergy/AdvReac Type Severity Reaction Status Date / Time No Known Allergies Allergy Verified 04/18/24 15:10 [No Known Allergies*] Home Medications ?Medication ?Instructions ?Recorded ?Confirmed ?Last Taken ?Type No Known Home Meds 07/19/24 07/19/24 Unknown History Exam Height,Weight and Vital Signs: Height 5 ft 6 in Weight 63.049 kg Assessment and Plan Assessment Anesthesia Assessment: Chart Reviewed Documented by User: Eulalia Mo MD 07/20/24 09:24 [facility] Past Medical History Medical History (Updated 07/18/24 @ 14:07 by Caitlyn Kenney RN) Abdominal pain Constipation Family History Family History Mother No problems noted. Father Gall bladder pain Asthma Family/Other Heart problem Family history of problems with anesthesia: No Surgical History Surgical History No history of previous surgery History of Problems with Anesthesia: No Social History Social History Housing: House Alcohol intake: current Alcohol intake frequency: does not drink Patient Tobacco Use Status: Never used Tobacco Second Hand Smoke Exposure: Yes Have you been hit, kicked, punched, or otherwise hurt by someone within the past year? If so, by whom?: No Are you DNR?: No Advance Directives: No Advance Directives Information Provided: Yes Nutrition Risks: No Nutritional Risk service: No Current occupational status: employed Cognitive needs: No Hearing needs: No Vision needs: No Meds Allergies Allergy/AdvReac Type Severity Reaction Status Date / Time No Known Allergies Allergy Verified 04/18/24 15:10 [No Known Allergies*] Home Medications ?Medication ?Instructions ?Recorded ?Confirmed ?Last Taken ?Type No Known Home Meds 07/19/24 07/19/24 Unknown History Exam Airway Mallampati Class: II TM Dist: >3cm Neck ROM: Full Assessment and Plan Assessment Anesthesia Assessment: Anesthesia Plan Discussed Final Anesthetic Review Family History of Problems with Anesthesia: No History of Problems with Anesthesia: No NPO: Yes ASA Class: I Final Preanesthetic Review: No Changes in Pt Med Stat, Meds/Allgs Chart Reviewed, Consent Obtained/Reviewed, Anes Risks/Benef Reviewed and DNR Form (If Appl.) Patient Risk: Low Procedure Risk: Low Anesthetic Plan Anesthetic Plan: TIVA Disposition: Standard PACU
--- OUTSIDE RECORDS SUMMARY | 2024-07-20 08:09 | XMS_ITS | Data Portability ---
Author Organization [place] - [facility], [address] Address [address] [place] [address] Assessment No assessment recorded. Plan of Treatment Reminders Order Date Submit Date Provider Last Modified By Organization Details Last Modified Time Details Appointments None recorded. Lab None recorded. Referral None recorded. Procedures None recorded. Surgeries None recorded. Imaging None recorded. Medication Orders cyclobenzap rine 10 mg tablet 2022 023 [facility]/Pharmacy #[id number], [address] [facility], [place], [address], 15:16:10 Patient TargetsNo targets recorded. Patient Instructions Encounter Date Encounter Id Patient Instructions Last Modified By Organization Details Last Modified Time 12/28/2022 [id number] getting back to normal after low back [...] Avai lable Vitals Date Recorded Body height Provider Name an d Address Organization Details Last Updated DateTime 12/28/2022 167.64 cm Ayana Hilliard PA - [facility] 0 12/28/2022 14:40:55 Date Recorded Respiratory rate Provider Name a nd Address Organization Details Last Updated DateTime 12/28/2022 20 /min Ayana Hilliard PA - [facility] 0 12/28/2022 14:41:30 Date Recorded Pain severity - 0-10 verbal numeric rating [Score] - Reported Provider Name and Address Organization Details Last Updated DateTime 12/28/2022 5 Ayana Babak PA - [facility] 0 12/28/2022 14:41:41 Date Recorded Oxygen saturation Oxygen saturation in Arterial blood by Pulse oximetry Provider Name and Address Organization Details Last Updated DateTime 12/28/2022 99 % 99 % Ayana Carney PA - [facility] 12/28/2022 14:43:18 Date Recorded Heart rate Provider Name an d Address Organization Details Last Updated DateTime 12/28/2022 74 /min Ayanaart Hilliard PA - [facility] 0 12/28/2022 14:43:20 Date Recorded Body temperature Provider Name a nd Address Organization Details Last Updated DateTime 12/28/2022 98.2 [degF] Ayanaart Thapabe PA - [facility] 12/28/2022 14:43:23 Date Recorded Systolic blood pressure Diastolic blood pressure Provider Name and Address Organization Details Last Updated DateTime 12/28/2022 109 mm[Hg] 75 mm[Hg] Ayana Hilliard PA - [facility] 12/28/2022 14:43:16 Social History Question Answer Notes LastModified by Organizat ion Details LastModified Time Tobacco Smoking Status Never Smoker Ayana branch, [place] - [facility] 12/28/2022 14:41:11 What Is [...] Diagnosis/Indication Diagnosis SNOMED-CT Code Diagnosis ICD10 Code Diagnosis Note [id number] [address] [facility] [address] [place] [address] 07/22/2020 11:41:10 07/22/2020 13:02:30 [id number] Gregoria King MD [address] [facility] [address] [place] [address] 12/28/2022 13:59:18 12/28/2022 15:26:57 Strain of muscle at thorax level [id number] S29.012A Rest, no heavy lifting , Take ibuprofen 600mg every 6hours with food, Apply heating pad Please follow up with PCP or Urgent Care in 3-5 days if no improvemen t or if any new symptoms occur that are concerning .Call 911 or go to nearest ER if you develop any shortness of breath, chest pain, severe headache, dizziness, or other concerning symptoms Health Concerns Section Related Observation LastModified by Organization Detai ls LastModified Time None Recorded Concern Status LastModified by Organization Details LastModified Time None Recorded Advance Directives Directive None Recorded Payers Encounter Date Sequence Insurance Name Policy Number Policy Chi Covered Member ID Chi Member ID Guarantor Name 07/22/2020 1 [facility] [id number] Stephen Woo [id number] Stephen Woo 12/28/[address] [place] [address] [id number] Stephen Woo [id number] Stephen Woo Notes Date Note Type Note [...] INtermittent and positional Gregoria King [facility] [address] [place], [address], [place] - [facility] 12/28/2022 16:31:09
[2024-07-20 08:13] VITALS: BP 119/78; PULSE 88; RESP 20; TEMP 36.9; O2SAT 98; BMI 22.9
[2024-07-20] MEDS: Lactated Ringers 1,000 ML 100 ML IVCONT (08:30)
--- NOTE | 2024-07-20 09:21 | MHC.SHP ---
Pre-Procedural Eval Section A - 24 Hr Update-Section A only Date of Service: 07/20/24 Section B - Complete if H&P > 30 days Chief Complaint: Right upper quadrant pain Relevant Family History (Specify if Yes): No Relevant Social History: None Present Medications: see Short Stay Collaborative assessment Medical History: Significant History ( Abdominal pain Constipation) History of Previous Operations: No relevant previous surgery Allergies: Allergies Allergy/AdvReac Type Severity Reaction Status Date / Time No Known Allergies Allergy Verified 04/18/24 15:10 [No Known Allergies*] Review of Systems Sugical H&P ROS: Negative: Constitution, Cardiovascular, Respiratory, Neurological, Psychiatric, Hem-Onc, Allergic/Immunologic, Gastrointestinal, Genitourinary, Musculoskeletal, Integumentary, Endocrine and Eyes/Ears/Nose/Throat Exam Surgical H&P Exam: Normal: HEENT, Normal: Heart, Normal: Lungs, Normal: Extremities, Normal: Abdomen, Normal: Skin and Normal: Neurological Plan Diagnosis/Plan: Unchanged I have reviewed the history and physical and performed a pertinent physical examination on my patient. No changes have occurred unless specified. Time Spent With Patient Time: Total time managing care of this patient today ____ minutes.
--- NOTE | 2024-07-20 09:49 | HO.OPN-COLON ---
Colonoscopy Operative Note Operative Note Date of Service: 07/20/24 Narrative: Operative Information Procedure Description: Colonoscopy Indication: abdominal pain Anesthesia: MAC COLONOSCOPY Instrument: Olympus variable stiffness pediatric scope 190L Colonoscopy Monitoring: Vital signs and clinical assessment, continuous EKG monitoring, Pulse oximetry, Carbon Dioxide monitoring and blood pressure monitoring were done throughout the procedure. Colon withdrawal time was 10 minutes. Procedure: The patient was placed in the left lateral decubitis position and pre-procedure medications were administered. After a digital rectal examination of the ano-rectum, the video colonoscope was inserted into the rectum and advanced through the colon to the cecum/TI. The colonoscope was slowly withdrawn in a retrograde panoramic fashion and the colon mucosa was carefully examined including a retroflexed view of the rectum. Findings and interventions are described below. Procedure Difficulty: moderate Findings: Terminal Ileum- mild erythema, bx taken Random bnx taken from right, left and rectum areas Cecum:normal Ascending Colon: normal Transverse Colon -normal Descending Colon:normal Sigmoid Colon: normal Rectum: Retroflexion with small internal hemorrhoids seen, grade I Anorectum - normal Intervention: biopsy forceps Colon preparation: [place] Bowel Preparation Scale Right colon; 2 Transverse colon: 2 Left colon; 2 (0 = Unprepared colon segment with mucosa not seen due to solid stool that cannot be cleared. 1 = Portion of mucosa of the colon segment seen, but other areas of the colon segment not well seen due to staining, residual stool and/or opaque liquid. 2 = Minor amount of residual staining, small fragments of stool and/or opaque liquid, but mucosa of colon segment seen well. 3 = Entire mucosa of colon segment seen well with no residual staining, small fragments of stool or opaque liquid) Impression and Post Procedure Diagnosis: internal hemorrhoids Plan: High fiber diet leaflet Avoid straining at stool, epsom salts and sitz bath, anusol supps or cream Repeat Colonoscopy aged 45 years or earlier if clinically indicated Above findings were reviewed with the patient and relevant handouts were provided if indicated.
[2024-07-20 09:56] VITALS: BP 97/55; PULSE 74; RESP 15; TEMP 36.3; O2SAT 100
[2024-07-20 10:10] VITALS: BP 106/64; PULSE 72; RESP 15; O2SAT 100
[2024-07-20 10:25] VITALS: BP 112/74; PULSE 68; RESP 15; O2SAT 100
[2024-07-20 10:40] VITALS: BP 111/73; PULSE 68; RESP 15; O2SAT 100
== END 2024-07-20 11:19 | disposition home or self-care (01) ==
PROVIDERS: PCP Internal Medicine; Visit Provider Internal Medicine Gastroenterology
PROC: 0DJD8ZZ Inspection of Lower Intestinal Tract, Via Natural or Artificial Opening Endoscopic (ICD-10-PCS; CPT 45378; principal; 2024-07-20 10:00)
DX: R10.11 Right upper quadrant pain (principal); R10.32 Left lower quadrant pain; K56.699 Other intestinal obstruction unspecified as to partial versus complete obstruction; K64.0 First degree hemorrhoids; K59.00 Constipation, unspecified
CPT/HCPCS: 45380; 88305; J2003; J2704

== ENCOUNTER → 2024-07-20 08:04 | Outpatient (BNV) | payer OTHER, SELFPAY | PROVIDERS: PCP Internal Medicine; Visit Provider Internal Medicine Gastroenterology | DX: R10.11 Right upper quadrant pain (principal); K64.0 First degree hemorrhoids | CPT/HCPCS: 45380 ==

== ENCOUNTER 2024-08-07 07:50 | Day surgery (SDC) | payer OTHER, SELFPAY ==
--- OUTSIDE RECORDS SUMMARY | 2024-06-13 23:30 | XMS_ITS | Data Portability ---
Author Organization ARABELLA Grier [facility], [address] Address [address] [place] [address] Assessment No assessment recorded. Plan of Treatment Reminders Order Date Submit Date Provider Last Modified By Organization Details Last Modified Time Details Appointments None recorded. Lab None recorded. Referral None recorded. Procedures None recorded. Surgeries None recorded. Imaging None recorded. Medication Orders cyclobenzap rine 10 mg tablet 2022 023 [facility]/Pharmacy #[id number], [address] [facility], [place], [address], 15:16:10 Patient TargetsNo targets recorded. Patient Instructions Encounter Date Encounter Id Patient Instructions Last Modified By Organization Details Last Modified Time 12/28/2022 [id number] getting back to normal after low back pain: care instructions Not available 12/28/2022 15:16:07 muscle strain: care instructions Not available 12/28/2022 15:16:16 Reason for Referral None Reported. Problems No Known Problems Medical Equipment None Reported. Allergies No known drug allergies Medications Name Sig Start Date Stop Date Status Note LastModified by Organization Details LastModified Time cyclobenzaprine 10 mg tablet Take 1 tablet twice a day by oral route as needed for 5 days. 2022 active Not Available Not Available Not Avai lable Vitals Date Recorded Body height Respiratory rate Oxygen saturation Oxygen saturation in Arterial blood by Pulse oximetry Heart rate Body temperature Systolic blood pressure Diastolic blood pressure Provider Name and Address Organization Details Last Updated DateTime 3 167.64 cm 20 /min 99 % 99 % 74 /min 98.2 [degF] 109 mm[Hg] 75 mm[Hg] Ayana BELL [employer] [facility] 3 14:43:16 Social History Question Answer Notes LastModified by Organizat ion Details LastModified Time Tobacco Smoking Status Never Smoker ARABELLA Leroy - [facility] 12/28/2022 14:41:11 What Is Your Level Of Alcohol Consumption? None Information not available 12/28/2022 Have You Had Direct Contact, Or Contact During Intimacy, With Monkeypox Rash, Scabs, Or Body Fluids From A Person With Monkeypox? No Information not available 12/28/2022 Do You Use Any Illicit Or Recreational Drugs? No Information not available 12/28/2022 Have You Recently Traveled Abroad? No Information not available 12/28/2022 Do You Or Have You Ever Used Any Other Forms Of Tobacco Or Nicotine? No Information not available 12/28/2022 Sex: Unknown Functional Status None recorded. Mental Status None recorded. Family History Relationship Description Onset Age of this Age Resolved Age Notes LastModified by Organization Details LastModified Time Father No current problems or disability Not available 12/28 14:41:05 Mother No current problems or disability Not available 12/28 14:41:05 Medical History No medical history recorded. Past Encounters Encounter ID Performer Location Encounter Start Date Encounter Closed Date Diagnosis/Indication Diagnosis SNOMED-CT Code Diagnosis ICD10 Code [id number] [address] [address] 07/22/2020 11:41:10 07/22/2020 13:02:30 [id number] Gregoria King MD [address] [address] 12/28/2022 13:59:18 12/28/2022 15:26:57 Strain of muscle at thorax level 376392900 S29.012A Health Concerns Section Related Observation LastModified by Organization Detai ls LastModified Time None Recorded Concern Status LastModified by Organization Details LastModified Time None Recorded Advance Directives Directive None Recorded Payers Encounter Date Sequence Insurance Name Policy Number Policy Chi Covered Member ID Chi Member ID Guarantor Name 07/22/[address] [place] [address] [id number] Stephen Woo [id number] Stephen Amna 12/28/2022 1 [facility] [id number] Stephen Woo [id number] Stephen Woo Notes Date Note Type Note Provider Name and Address Organization Details Recorded Time 3 text/html Back Pain/Injury UCReported bypatient.source of patient informationInformation obtained from patient; Patient arrived at Urgent Care ambulatory Location:middle of the back; upper back; pain is not radiating Quality:sharp;muscle spasms Severity:pain level 5/10 Duration:1 days Aggravating Factors:cannot identify Previous InjuryNo prior injury to affected body partNotes:Heavy lifting at workl on wednesday. Pain got worse when lifting son yesterday / last night. INtermittent and positional Gregoria King MD [address] [place], [address], [place] - [facility] 12/28/2022 16:31:09
[2024-08-03 08:16] VITALS: BMI 22.8
--- OUTSIDE RECORDS SUMMARY | 2024-08-07 07:54 | XMS_ITS | Data Portability ---
Author Organization ARABELLA Grier [facility], [address] Address [address] [place] [address] Assessment No assessment recorded. Plan of Treatment Reminders Order Date Submit Date Provider Last Modified By Organization Details Last Modified Time Details Appointments None recorded. Lab None recorded. Referral None recorded. Procedures None recorded. Surgeries None recorded. Imaging None recorded. Medication Orders cyclobenzap rine 10 mg tablet 2022 023 [facility]/Pharmacy #[id number], [address] [facility], [place], [address], 15:16:10 Patient TargetsNo targets recorded. Patient Instructions Encounter Date Encounter Id Patient Instructions Last Modified By Organization Details Last Modified Time 12/28/2022 [id number] getting back to normal after low back [...] Vitals Date Recorded Body height Respiratory rate Pain severity - 0-10 verbal numeric rating [Score] - Reported Oxygen saturation Oxygen saturation in Arterial blood by Pulse oximetry Heart rate Body temperature Systolic blood pressure Diastolic blood pressure Provider Name and Address Organization Details Last Updated DateTime 3 167.64 cm 20 /min 5 99 % 99 % 74 /min 98.2 [degF] 109 mm[Hg] 75 mm[Hg] Ayana BELL [facility] 14:43:16 Social History Question Answer Notes LastModified by Organizat ion Details LastModified Time Tobacco Smoking Status Never Smoker ARABELLA Leroy - [facility] 12/28/2022 14:41:11 What Is Your Level [...] SNOMED-CT Code Diagnosis ICD10 Code Diagnosis Note [id number] [address] [facility] [address] [place] [address] 07/22/2020 11:41:10 07/22/2020 13:02:30 [id number] Gregoria King MD [address] [facility] [address] [place] [address] 12/28/2022 13:59:18 12/28/2022 15:26:57 Strain of muscle at thorax level [id number] S29.012A Rest, no heavy lifting , Take [...] Chi Member ID Guarantor Name 07/22/2020 1 [facility] [id number] Stephen Woo [id number] Stephen Woo 12/28/[address] [place] [address] [id number] Stephen Woo [id number] Stephen Woo Notes Date Note Type Note [...] night. INtermittent and positional Gregoria King MD [facility] [place], [address], [place] - [facility] 12/28/2022 16:31:09
[2024-08-07 08:17] VITALS: BMI 22.9
[2024-08-07 08:19] VITALS: BP 119/82; PULSE 75; RESP 16; TEMP 37.2; O2SAT 99
[2024-08-07] MEDS: Lactated Ringers 1,000 ML 100 ML IVCONT (09:26)
--- NOTE | 2024-08-07 09:35 | P.CONAN_ITS ---
HPI - Anesthesia Eval Consult details Narrative: 29 yo M presenting for lap nilson. PMFSH Active Problems Active Problems: All Active Problems RUQ pain (Acute) Left lower quadrant abdominal pain of unknown etiology (Acute) Congestion of right ear (Acute) Annual physical exam (Acute) Bowel wall thickening (Acute) Viral gastroenteritis (Acute) Viral upper respiratory illness (Acute) Constipation (Acute) Past Medical History Medical History (Updated 07/18/24 @ 14:07 by Caitlyn Kenney RN) Abdominal pain Constipation Family History Family History Mother No problems noted. Father Gall bladder pain Asthma Family/Other Heart problem Family history of problems with anesthesia: No Surgical History Surgical History No history of previous surgery History of Problems with Anesthesia: No Social History Social History Housing: House Alcohol intake: current Alcohol intake frequency: holidays/special occasions only Patient Tobacco Use Status: Never used Tobacco Second Hand Smoke Exposure: Yes Use of substances other than those prescribed or required for medical reasons: No Are you DNR?: No Advance Directives: No Advance Directives Information Provided: Yes service: No Current occupational status: employed Cognitive needs: No Hearing needs: No Vision needs: No Meds Allergies Allergy/AdvReac Type Severity Reaction Status Date / Time No Known Allergies Allergy Verified 04/18/24 15:10 [No Known Allergies*] Active Medications: Current Medications Lactated Ringer's (Lr) 1,000 mls @ 100 mls/hr IVCONT .Q10H [facility] Last Admin: 08/07/24 09:26 Dose: 100 mls/hr Home Medications ?Medication ?Instructions ?Recorded ?Confirmed ?Last Taken ?Type No Known Home Meds 07/19/24 07/19/24 Unknown History Exam Exam Date and Time: 08/07/24 0935 Height,Weight and Vital Signs: Height 5 ft 6 in Weight 64.41 kg Last Vital Signs Temp 98.9 F 08/07/24 08:19 Pulse 75 08/07/24 08:19 Resp 16 08/07/24 08:19 BP 119/82 08/07/24 08:19 Pulse Ox 99 08/07/24 08:19 O2 Del Method Room Air 08/07/24 08:19 Airway Mallampati Class: II TM Dist: >3cm Neck ROM: Full Loose/Missing/Broken Teeth: No (patient denies any loose or broken teeth) Heart: S1S2 Lungs: CTAB Assessment and Plan Assessment Anesthesia Assessment: Anesthesia Plan Discussed and Chart Reviewed Final Anesthetic Review Family History of Problems with Anesthesia: No History of Problems with Anesthesia: No NPO: Yes ASA Class: I Final Preanesthetic Review: No Changes in Pt Med Stat, Meds/Allgs Chart Reviewed, Consent Obtained/Reviewed and Anes Risks/Benef Reviewed Patient Risk: Low Procedure Risk: Intermediate Anesthetic Plan Anesthetic Plan: GA and Agree w/ Assess. and Plan Disposition: Standard PACU
--- NOTE | 2024-08-07 09:50 | P.HPSUR_ITS ---
Pre-Procedural Eval Section A - 24 Hr Update-Section A only Date of Service: 08/07/24 The patient is an INPATIENT: No Changes since office visit: Yes Patient answered all questions; No Cold of Flu in the past 2 weeks, No New Medical Problems and No Changes in Medication The patient has been examined within 24 hours of the surgical procedure. The History & Physical has been completed within 30 days and I have reviewed it.: No Section B - Complete if H&P > 30 days Chief Complaint: Right upper quadrant pain Details of Present Illness: Patient continues to have abdominal pain in the right upper quadrant on occasion. Ultrasound found to have multiple polyps within the gallbladder. Relevant Family History (Specify if Yes): No Relevant Social History: None Present Medications: see Short Stay Collaborative assessment Medical History: No relevant PMH History of Previous Operations: No relevant previous surgery Allergies: Allergies Allergy/AdvReac Type Severity Reaction Status Date / Time No Known Allergies Allergy Verified 04/18/24 15:10 [No Known Allergies*] Review of Systems Sugical H&P ROS: Negative: Constitution, Cardiovascular, Respiratory, N eurological, Psychiatric, Hem-Onc, Allergic/Immunologic, Gastrointestinal, Genitourinary, Musculoskeletal and Integumentary Exam Surgical H&P Exam: Normal: HEENT, Normal: Heart, Normal: Lungs, Normal: Extremities, Normal: Abdomen and Normal: Skin Plan Diagnosis/Plan: Unchanged I have reviewed the history and physical and performed a pertinent physical examination on my patient. No changes have occurred unless specified. Time Spent With Patient Time: Total time managing care of this patient today ____ minutes.
--- NOTE | 2024-08-07 11:11 | W.PM.OPN ---
Operative Note Operative Note Date of Service: 08/07/24 Narrative: Preoperative diagnosis: Biliary colic, gallbladder polyps Postoperative diagnosis: Same, chronic cholecystitis Procedure: Laparoscopic cholecystectomy Surgeon: Dom Gar MD Wall Taper Helper: KATHE Ramirez Anesthesia: General endotracheal Indications for procedure: 29-year-old male patient with complaints of right upper quadrant abdominal pain associated with fatty food intake. Patient was found to have multiple gallbladder polyps in the gallbladder. Operative findings: Evidence of chronic cholecystitis with dense adhesions to the undersurface of the gallbladder. Specimen: gallbladder Estimated blood loss: 10 mL Complications: None Procedure details: Patient was brought to the OR and placed in a supine position. After administering general anesthesia the patient's abdomen was prepped with ChloraPrep and draped in a sterile fashion. A surgical time-out was called the consent confirmed. Patient received preoperative antibiotics and Venodyne boots were in place. Local anesthesia consisting of 0.5% Sensorcaine without epinephrine was infiltrated in a periumbilical region. A 5 mm incision was made above the umbilicus in a transverse fashion. The Veress needle was then inserted while elevating abdominal cavity with towel clips. After positive drop test the abdomen was insufflated to a pressure of 15 mm of mercury. The Veress needle was then removed and a 5 mm trocar inserted. The camera was inserted in the abdomen explored. A 12 mm trocar was then placed in the epigastrium. Two 5 mm trocars placed in the right upper quadrant by the ambulance assistant. The patient was placed in reverse Trendelenburg positioning and rotated to the left. The gallbladder was grasped with the fundus and retracted cephalad by the ambulance assistant. The infundibulum was then grasped and retracted away from the liver bed, also by the ambulance assistant. The Dolphin dissected was then used by the surgeon to dissect the peritoneum off the infundibulum to reveal the junction with the cystic duct. Cystic artery was noted slightly medial and posterior to the cystic duct. After obtaining a critical view the cystic duct was doubly clipped and divided. The cystic artery was then doubly clipped and divided. The gallbladder was then dissected off the liver bed using electrocautery with an L hook. Hemostasis was assured all times using the electrocautery. When the gallbladder is completely dissected off the liver bed was placed in an Endo-Catch bag and brought out through the epigastric incision. The gallbladder was sent to pathology for further examination. The abdomen was then re-examined. The liver bed was irrigated and suctioned dry. No bleeding or bile leak could be identified. CO2 was then evacuated and all trocars removed. Fascia was closed at the epigastric incision using a [id number] 0 Polysorb suture. Skin was closed in all incisions using a subcuticular 4 0 Polysorb suture by both the surgeon and ambulance assistant. Sterile dressings consisting of Steri-Strips, 2 x 2 gauze, and Tegaderm were then applied. The patient tolerated the procedure well. Sponge instrument and needle counts reported as correct. The patient was transferred to PACU in stable condition.
[2024-08-07 11:22] VITALS: BP 101/59; PULSE 60; RESP 16; TEMP 36.8; O2SAT 100
[2024-08-07 11:25] VITALS: BP 101/65; PULSE 52; RESP 16; O2SAT 100
[2024-08-07 11:30] VITALS: BP 106/62; PULSE 65; RESP 16; O2SAT 100
[2024-08-07 11:35] VITALS: BP 117/75; PULSE 76; RESP 16; O2SAT 100
[2024-08-07 11:50] VITALS: BP 126/80; PULSE 83; RESP 16; O2SAT 100
== END 2024-08-07 12:38 | disposition home or self-care (01) ==
PROVIDERS: PCP Internal Medicine; Visit Provider Surgery
PROC: 0FT44ZZ Resection of Gallbladder, Percutaneous Endoscopic Approach (ICD-10-PCS; CPT 47562; principal; 2024-08-07 10:40)
DX: K80.44 Calculus of bile duct with chronic cholecystitis without obstruction (principal); K82.8 Other specified diseases of gallbladder; K59.00 Constipation, unspecified
CPT/HCPCS: 47562; 88304; J1100; J1885; J2003; J2405; J2704; J2795; J3010

== ENCOUNTER → 2024-08-07 07:50 | Outpatient (BNV) | payer OTHER, SELFPAY | PROVIDERS: PCP Internal Medicine; Visit Provider Surgery | DX: K82.8 Other specified diseases of gallbladder (principal) | CPT/HCPCS: 47562 ==

== ENCOUNTER 2024-08-15 09:02 | Outpatient (AMB) | payer OTHER, SELFPAY ==
--- NOTE | 2024-08-15 09:10 | MHC.OFFVIS ---
Vital Signs 08/15/24 09:14 Height 5 ft 6 in Weight 143 lb 2 oz BMI 23.1 BP 133/79 Blood Pressure Location Lt brachial Position Sitting Pulse 81 Intake Visit Reasons: s/p Lap or poss open Cholecystectomy Intake Note: Patient is seen in office for post op assessment post Laparoscopic cholecystectomy. 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 Operative findings were consistent with chronic cholecystitis. He tolerated the procedure well and mainly reports incisional pain in the right upper quadrant. He denies any nausea, vomiting, fever or chills. He does report his job requires heavy lifting and pulling. [facility] Medical History Abdominal pain Constipation Surgical History History of laparoscopic cholecystectomy (08/07/24) No history of previous surgery Family History Mother No problems noted. Father Gall bladder pain Asthma Family/Other Heart problem Social History Housing: House Alcohol intake: current Alcohol intake frequency: does not drink Patient Tobacco Use Status: Never used Tobacco Second Hand Smoke Exposure: Yes service: No Current occupational status: employed Cognitive needs: No Hearing needs: No Vision needs: No Physical Exam Vital Signs: Last Vital Signs Pulse 81 08/15/24 09:14 BP 133/79 08/15/24 09:14 BMI result Body Mass Index 23.1 Const General: no acute distress Nutritional Appearance: well nourished Orientation/consciousness: patient oriented x3 Limitations: no limitations Resp Effort & Inspection: normal respiratory effort GI Other: Trocar incisions are clean, dry, and intact without redness or discharge. No hernia could be identified with Valsalva maneuvers. Skin Other: Warm, dry, no rash Neuro General: patient oriented x3 Assessment & Plan Assessment & Plan (1) Chronic cholecystitis: Code(s): K81.1 - Chronic cholecystitis Category: Medical Plan 29-year-old male patient status post laparoscopic cholecystectomy for chronic cholecystitis. He reports feeling improved with only mild incisional pain. I recommended he continue to avoid lifting greater than 10 lb. He should wait approximately 1 month from the time of surgery before returning to full duty at work. Expressed understanding and agrees with the plan. He should follow up as needed. Coding Level of Care Code Global (66976) Diagnoses Chronic cholecystitis K81.1
[2024-08-15 09:14] VITALS: BP 133/79; PULSE 81; BMI 23.1
== END 2024-08-15 09:27 | disposition home or self-care (01) ==
PROVIDERS: PCP Internal Medicine; Visit Provider Surgery
DX: K81.1 Chronic cholecystitis (principal)
CPT/HCPCS: 99024

== ENCOUNTER 2024-09-20 08:01 | Outpatient (REF) | payer OTHER, SELFPAY ==
--- NOTE | ~2024-09-20 | CT_ITS ---
EXAMINATION: CT ABDOMEN PELVIS ENTEROGRAPHY WITHOUT IV CONTRAST HISTORY: R10.33 - Periumbilical pain COMPARISON: Comparison is made with the prior examination dated 08/11/2021. TECHNIQUE: CT scan of the abdomen and pelvis was performed following administration of 85 mL Omnipaque 350 using standard departmental protocol. Coronal and sagittal reformatted images were generated and reviewed. The patient was given low density oral contrast material for CT enterography. This CT exam was performed with one or more of the following dose reduction techniques: automated exposure control, adjustment of the mA and/or kV according to size, use of iterative reconstruction technique. DLP: 426 mGy-cm FINDINGS: LOWER CHEST: The visualized lung bases are clear. There is no pleural effusion. CARDIOVASCULATURE: The heart is normal in size. There is no pericardial effusion. LIVER: The liver is normal in size and contour. No liver mass is identified. The hepatic and portal veins are patent. GALLBLADDER / BILE DUCTS: The gallbladder is unremarkable. There is no intra or extrahepatic biliary ductal dilatation. SPLEEN: The spleen is normal in size. No focal splenic lesion is identified. PANCREAS: The pancreas is unremarkable in appearance. ADRENAL GLANDS: Within normal limits. KIDNEYS/RETROPERITONEUM: No renal calculi are identified. There is no hydronephrosis. No renal masses are identified. LYMPH NODES: No abdominal or pelvic lymphadenopathy. VASCULATURE: The abdominal aorta is normal in caliber. MESENTERY/PERITONEUM: No free fluid. No masses. There is no free intraperitoneal gas. STOMACH: The stomach is unremarkable. SMALL BOWEL: The small bowel is normal in caliber. There is no wall thickening or abnormal mucosal hyperenhancement. COLON: The colon is unremarkable. APPENDIX: Normal. URINARY BLADDER/PELVIC ORGANS: The urinary bladder is unremarkable. The prostate is normal in size. BONES / SOFT TISSUES: No suspicious bony or soft tissue abnormalities. CT/CT enterography IMPRESSION: Unremarkable CT enterography. Electronically signed by: Andre Rao MD 09/22/2024 02:54 PM EDT
--- OUTSIDE RECORDS SUMMARY | 2024-09-20 08:05 | XMS_ITS | Data Portability ---
Author Organization [facility], [address] Address [address] [place] [address] Assessment No assessment recorded. Plan of Treatment Reminders Order Date Submit Date Provider Last Modified By Organization Details Last Modified Time Details Appointments None recorded. Lab None recorded. Referral None recorded. Procedures None recorded. Surgeries None recorded. Imaging None recorded. Medication Orders cyclobenzap rine [address] [facility]/Pharmacy #[id number], [address] [facility], [place], [address], 15:16:10 Patient TargetsNo targets recorded. Patient Instructions Encounter Date Encounter Id Patient Instructions Last Modified By Organization Details Last Modified Time 12/28/2022 [id number] getting back to normal after low back [...] [degF] 109 mm[Hg] 75 mm[Hg] Ayana [facility] 14:43:16 Social History Question Answer Notes [...] SNOMED-CT Code Diagnosis ICD10 Code Diagnosis Note [id number] [address] [facility] [address] [place] [address] 07/22/2020 11:41:10 07/22/2020 13:02:30 [id number] Gregoria King MD [address] [facility] [address] [place] [address] 12/28/2022 13:59:18 12/28/2022 15:26:57 Strain of muscle at thorax level [id number] S29.012A Rest, no heavy lifting , Take [...] Chi Member ID Guarantor Name 07/22/2020 1 [facility] [id number] Stephen Woo [id number] Stephen Woo 12/28/[address] [place] [address] [id number] Stephen Woo [id number] Stephen Woo Notes Date Note Type Note [...] night. INtermittent and positional Gregoria King MD [facility] [place], [address], [place] - [facility] 12/28/2022 16:31:09
[2024-09-20] MEDS: Sorbitol/Mannit/Xanth Imaging 500 ML LIQUID 1500 ML PO (10:03)
[2024-09-20] MEDS: iohexoL 350 MG/ML 100 ML INFUS..BTL IV (10:03)
== END 2024-09-20 08:02 | disposition home or self-care (01) ==
LOC: HO.CT 08:01
PROVIDERS: PCP Internal Medicine; Visit Provider Internal Medicine Gastroenterology
DX: R10.33 Periumbilical pain (principal)
CPT/HCPCS: 74177; Q9967

== ENCOUNTER → 2024-09-20 08:03 | Outpatient (BNV) | payer OTHER, SELFPAY | PROVIDERS: PCP Internal Medicine; Visit Provider Radiology Diagnostic Radiology | DX: R10.33 Periumbilical pain (principal) | CPT/HCPCS: 74177 ==

== ENCOUNTER 2025-01-12 08:31 | Outpatient (REF) | payer OTHER, SELFPAY ==
[2025-01-12 09:53] LABS: MANUAL DIFF FLAG NO
[2025-01-12 10:11] LABS: Appearance Urine Clear; Glucose Urine UA Negative (Negative); PH 6.5 (5.0-9.0); Specific Gravity - Urine 1.025 (1.005-1.025)
[2025-01-12 10:26] LABS: Hematocrit 45.0 % (42.0-52.0); Hemoglobin 14.3 g/dl (14.0-18.0); Imm Gran Abs Auto 0.02 X10*3/uL (0.00-0.03); Imm Gran Pct Auto 0.4 % (0.0-0.4); Lymphocytes Absolute Auto 2.0 X10*3/uL (1.2-4.9); Mean Corpuscular HGB Conc 31.8 g/dl (31.0-36.0); Mean Corpuscular Hemoglobin 27.8 pg (27.0-33.0); Mean Corpuscular Volume 87.5 fL (80.0-98.0); NRBC Abs Auto 0.000 X10*3/uL (0.0-0.012); NRBC Pct Auto 0.0 /100WBC (0.0-0.2); Platelet Count 275 X10*3/uL (160-400); Red Blood Count 5.14 X10*6/uL (4.60-5.80); White Blood Count 5.7 X10*3/uL (4.8-10.8)
[2025-01-12 10:55] LABS: Alanine Aminotransferase 101 U/L (0-40); Albumin Level 4.6 g/dL (3.5-5.0); Alkaline Phosphatase 67 U/L (39-117); Anion Gap 10 (12-20); Aspartate Amino Transferase 46 U/L (5-37); Blood Urea Nitrogen 14 mg/dL (9-16); Calcium 8.9 mg/dL (8.4-10.2); Carbon Dioxide 29 mmol/L (22-29); Chloride 104 mmol/L (96-108); Cholesterol 191 mg/dL (<200); Estimated Glomerular Filt Rate > 60; HDL Cholesterol 76 mg/dL (>40); Potassium 4.0 mmol/L (3.3-5.1); Sodium 139 mmol/L (135-145); Total Protein 7.3 g/dL (6.5-8.0); Triglycerides 51 mg/dL (<150)
== END 2025-01-12 08:32 | disposition home or self-care (01) ==
LOC: HO.LAB 08:31
PROVIDERS: PCP Internal Medicine; Visit Provider Internal Medicine
DX: Z00.00 Encounter for general adult medical examination without abnormal findings (principal); E78.00 Pure hypercholesterolemia, unspecified; R30.0 Dysuria; D64.9 Anemia, unspecified; K21.9 Gastro-esophageal reflux disease without esophagitis; E55.9 Vitamin D deficiency, unspecified
CPT/HCPCS: 36415; 80053; 80061; 81003; 82306; 84443; 85025; 96127

== ENCOUNTER 2025-01-12 08:31 | Outpatient (AMB) | payer OTHER, SELFPAY ==
--- NOTE | 2025-01-12 08:33 | MHC.PC.OV ---
Vital Signs 01/12/25 08:34 Height 5 ft 6 in Weight 128 lb 6 oz BMI 20.7 BP 108/80 Blood Pressure Location Lt brachial Position Sitting Pulse 65 Pulse Source Pulse Oximeter Pulse Oximetry (%) 98 Oxygen Delivery Method Room Air Intake Visit Reasons: Annual Exam Continuous Improvement Consultant Required: No Accompanied by: Self / Same As Patient Allergies No Known Allergies (No Known Allergies*) Allergy (Verified 01/12/25 09:09) Medication List - Last Reconciled 01/12/25 by Juan Vega MD No Known Home Meds Tobacco use date assessed: 01/12/25 Dental Screening Dental Screen Date: 01/12/25 Did you have a dental visit in the last 12 months?: No Did you have a dental problem in the last 6 months where you did not have access to dental care?: No Was dental information given to patient?: No HPI Annual Exam HPI Details Patient comes in today for his annual physical examination States that he feels okay He denies any headaches or dizziness Denies any chest pains, no SOB No nausea/vomiting, no abdominal pain - states that his stomach feels a lot better since his laparoscopic cholecystectomy back in August 2024 although he tends to experience some epigastric pain/cramping whenever he drinks cold milk He also reports occasional heartburns, most often in the morning that are relieved when he drinks some water No change in bowel habits noted Denies any acute urinary symptoms PFSH Medical History (Updated 01/12/25 @ 09:23 by Juan Vega MD) Abdominal pain Constipation Surgical History (Updated 01/12/25 @ 09:10 by Juan Vega MD) History of colonoscopy History of laparoscopic cholecystectomy (08/07/24) Family History Mother No problems noted. Father Gall bladder pain Asthma Family/Other Heart problem Social History Housing: House Alcohol intake: current Alcohol intake frequency: does not drink Patient Tobacco Use Status: Never used Tobacco e-Cigarette/Vaping Use: Never Used Second Hand Smoke Exposure: Yes service: No Current occupational status: employed Cognitive needs: No Hearing needs: No Vision needs: No Questionnaire PHQ-9 Over the last 2 weeks, how often have you been bothered by any of the following problems? 1. Little interest or pleasure in doing things: not at all 2. Feeling down, depressed, or hopeless: not at all 3. Trouble falling or staying asleep, or sleeping too much: several days 4. Feeling tired or having little energy: several days 5. Poor appetite or overeating: not at all 6. Feeling bad about yourself - or that you are a failure or have let yourself or your family down: not at all 7. Trouble concentrating on things, such as reading the newspaper or watching television: not at all 8. Moving or speaking so slowly that other people could have noticed. Or the opposite - being so fidgety or restless that you have been moving around a lot more than usual: not at all 9. Thoughts that you would be better off or of hurting yourself in some way: not at all Total score: 2 Depression Screening Interpretation: Negative Depression Screening Done: Yes 91273 - PHQ-9 Billing: Yes Source: Developed by Drs. Andre العلي, Yanni Fong, Osei Berger and colleagues, with an educational maya from [employer]. Thrive Questionnaire Date Thrive assessed: 01/12/25 I am a: Patient What is your living situation today?: I have a steady place to live Within the past 12 months, did the food you bought not last and you didn't have the money to get more?: Never true Within the past 12 months, did you worry whether your food would run out before you got money to buy more?: Never true Do you have trouble paying for medicines?: No Do you have trouble getting transportation to medical appointments?: No Do you have trouble paying your heating and electricity bill?: No Do you have trouble taking care of your child, family member or friend?: No Do you have trouble with day-to-day activities such as bathing, preparing meals, shopping, managing finances, etc.?: No Are you currently unemployed and looking for a job?: No Are you interested in more education?: Yes Please select the resources that you would like help with: None Currently or been in a relationship where the following occur: No concerns reported THRIVE Score: 0 AUDIT C Alcohol Use Questionnaire (AUDIT-C) 1. How often do you have a drink containing alcohol?: Monthly or less 2. How many drinks containing alcohol do you have on a typical day when you are drinking?: 3 or 4 3. How often do you have six or more drinks on one occasion?: Less than monthly Total Score: 3 Score Reviewed/Action Taken: Yes CRISPIN-7 AMB Questionnaire CRISPIN-7 Date CRISPIN - 7 assessed: 01/12/25 Feeling nervous, anxious, or on edge: 0 = Not at all Not being able to stop or control worryin = Not at all Worrying too much about different things: 0 = Not at all Trouble relaxin = Not at all Being so restless that it is hard to sit still: 0 = Not at all Becoming easily annoyed or irritable: 0 = Not at all Feeling afraid as if something awful might happen: 0 = Not at all Total CRISPIN-7 score (0-4 normal; 5-9 mild; 10-14 moderate; 15-21 severe): 0 Source: Developed by Drs. Andre العلي, Yanni Fong, Osei Berger and colleagues, with an educational maya from [employer]. Review of Systems Const Denies chills, Denies fatigue, Denies fever(s), Denies headache(s), Denies malaise and Denies weakness Eyes Denies blurry vision, Denies change in vision, Denies irritation and Denies itchy eyes ENT Denies dysphagia, Denies dizziness, Denies otalgia, Denies headache(s), Denies nasal congestion, Denies neck pain, Denies odynophagia and Denies sore throat Card Denies chest pain, Denies rapid heart rate, Denies irregular heart rhythm, Denies palpitations and Denies dyspnea Resp Denies chest congestion, Denies cough, Denies dyspnea and Denies wheezing GI Reports abdominal pain (epigastric cramping pain often after drinking cold milk), Denies bloating, Reports constipation (occasional - takes Miralax with relief), Denies dysphagia, Reports heartburn (occasionally, most often in AM), Denies diarrhea, Denies nausea, Denies odynophagia and Denies vomiting Denies hematuria, Denies difficulty urinating, Denies dysuria, Denies urinary frequency and Denies urinary urgency Musc Denies back pain, Denies arthralgias, Denies joint swelling, Denies muscle weakness and Denies neck pain Skin/Breast Denies change in pigmentation, Denies lesions, Denies rash and Denies unusual bruising Neuro Denies dizziness, Denies headache(s), Denies paresthesias and Denies weakness Endo Denies fatigue and Denies palpitations Aller/Immun Denies itchy eyes and Denies wheezing Physical exam (Primary Care) Vital Signs: Last Vital Signs Pulse 65 01/12/25 08:34 BP 108/80 01/12/25 08:34 Pulse Ox 98 01/12/25 08:34 Oxygen Delivery Method Room Air 01/12/25 08:34 BMI result Body Mass Index 20.7 Tobacco/Smoking Status: Tobacco use Status Tobacco use date assessed 01/12/25 01/12/25 08:35 Patient Tobacco Use Status Never used Tobacco 01/12/25 08:35 e-Cigarette/Vaping Use Never Used 01/12/25 08:35 PHQ-9: PHQ-9 Score PHQ-9: Total score 2 01/12/25 08:35 Depression Screening Interpretation: Negative Thrive Assessment: Date of Thrive Assessment Date Thrive assessed 01/12/25 01/12/25 08:35 Currently or been in a relationship where the following occur: No concerns reported Const General: no acute distress, alert and awake Orientation/consciousness: patient oriented x3 HENMT Head: Yes normocephalic and Yes atraumatic Ears: external ears normal, TM's normal bilaterally and EAC's normal General nose exam: No nasal discharge present Face and sinus: Yes normal facial exam and Yes sinuses nontender Teeth and gingiva: dentition normal Throat: Yes posterior oropharynx normal and Yes tonsils normal (no TP congestion) Eyes Eyelids: Yes eyelids normal Conjunctivae: conjunctivae normal Pupils: Equal, round and reactive pupils present EOM: EOMs intact bilaterally Neck Neck: Yes no lymphadenopathy and Yes supple Thyroid: Thyroid normal Resp Auscultation: clear to auscultation bilaterally, no rales and no wheezes Cardio Rate: regular rate Rhythm: regular rhythm Heart sounds: no murmurs GI Palpation (GI): Soft to palpation, nontender and No hepatosplenomegaly present Auscultation: normal bowel sounds General: Yes no CVA tenderness Back/Spine/Pelvis Back: no CVA tenderness Thoracic/Lumbar Spine: thoracic and lumbar spine normal to inspection Skin Lesions: no lesions Rashes: no rashes Neuro General: patient oriented x3, moves all extremities, no focal motor deficits and CN's II-XI intact bilaterally Cranial nerves: Yes Equal, round and reactive pupils present Cognition (Neuro): normal cognition Gait exam (Neuro): Normal gait present Extrem General: Yes no clubbing, cyanosis or edema Coding Level of Care Code Est Pt Prev Care 18-39y(39822) Diagnoses Annual physical exam Z GERD without esophagitis K21.9 Additional Codes PHQ-9 - 91169 - PHQ-9 Billing: Yes ([id number]) Assessment & Plan Assessment & Plan (1) Annual physical exam: Code(s): Z - Encounter for general adult medical examination without abnormal findings Category: Medical Plan: Check labs (2) GERD without esophagitis: Code(s): K21.9 - Gastro-esophageal reflux disease without esophagitis Category: Medical Plan: Patient states that his stomach feels a lot better since his laparoscopic gall bladder surgery in August 2024 although for some reason, he tends to experience some epigastric pain/cramping whenever he drinks cold milk He also reports occasional heartburns, most often in the morning that are relieved when he drinks some water Have advised him that he can also try taking some OTC Pepcid (Famotidine) if drinking water does not relieve his symptoms adequately Follow up with GI as scheduled Plan To return in 1 year for his next annual physical examination Orders: Orders Lipid Panel Today E78.00 - Pure hypercholesterolemia, unspecified, Z00.00 - Encounter for general adult medical examination without abnormal findings Vitamin D 25-OH Total Today E55.9 - Vitamin D deficiency, unspecified, Z00.00 - Encounter for general adult medical examination without abnormal findings Complete Blood Count Auto Diff Today D64.9 - Anemia, unspecified, Z00.00 - Encounter for general adult medical examination without abnormal findings Comprehensive Corona. Panel Fast Today E78.00 - Pure hypercholesterolemia, unspecified, Z00.00 - Encounter for general adult medical examination without abnormal findings TSH reflex Free T4 Today E78.00 - Pure hypercholesterolemia, unspecified, Z00.00 - Encounter for general adult medical examination without abnormal findings UA CC w/rflx Micro + Cult Today R30.0 - Dysuria, Z00.00 - Encounter for general adult medical examination without abnormal findings
[2025-01-12 08:34] VITALS: BP 108/80; PULSE 65; O2SAT 98; BMI 20.7
--- OUTSIDE RECORDS SUMMARY | 2025-01-12 08:39 | XMS_ITS | Data Portability ---
Author Organization [facility], [address] Address [address] [place] [address] Assessment No assessment recorded. Plan of Treatment Reminders Order Date Submit Date Provider Last Modified By Organization Details Last Modified Time Details Appointments None recorded. Lab None recorded. Referral None recorded. Procedures None recorded. Surgeries None recorded. Imaging None recorded. Medication Orders cyclobenzap rine 10 mg tablet 2022 023 [facility]/Pharmacy #[id number], [address], [place], [address], 15:16:10 Patient TargetsNo targets recorded. Patient Instructions Encounter Date Encounter Id Patient Instructions Last Modified By Organization Details Last Modified Time 12/28/2022 [id number] getting back to normal after low back [...] Pulse oximetry Heart rate Body temperature Systolic And Diastolic Provider Name and Address Organization Details Last Updated DateTime 3 167.64 cm 20 /min 99 % 99 % 74 /min 98.2 [degF] 109/75 mm[Hg] Ayana [facility] 14:43:16 Social History Question Answer Notes LastModified by Organizat ion Details LastModified Time Tobacco Smoking Status Never Smoker [facility] - [facility] 12/28/2022 14:41:11 Have You Had Direct Contact, Or Contact During Intimacy, With Monkeypox Rash, Scabs, Or Body Fluids From A Person With Monkeypox? No Information not available 12/28/2022 Have You Recently Traveled Abroad? No Information not available 12/28/2022 Sex: Unknown Functional Status Question Answer Note LastModified by OrganizEtsy Details LastModified Time Do you use any illicit or recreational drugs? No Information not available 12/28/2022 Do you or have you ever used any other forms of tobacco or nicotine? No Information not available 12/28/2022 What is your level of alcohol consumption? None Information not available 12/28/2022 Mental Status None recorded. Family History Relationship [...] SNOMED-CT Code Diagnosis ICD10 Code Diagnosis Note [id number] [address] [facility] [address] [place] [address] 07/22/2020 11:41:10 07/22/2020 13:02:30 [id number] Gregoria King MD [address] [place] [address] 12/28/2022 13:59:18 12/28/2022 15:26:57 Strain of muscle at thorax level [id number] S29.012A Rest, no heavy lifting , Take [...] Recorded Advance Directives Directive None Recorded Payers Insurance Date Sequence Insurance Name Policy Number Policy Chi Covered Member ID Chi Member ID Guarantor Name 12/28/2022 1 [facility] [id number] Stephen Woo [id number] Stephen Woo Notes Date Note Type Note [...] INtermittent and positional Gregoria King MD [address] [place], [address], [place] - [facility] 12/28/2022 16:31:09
== END 2025-01-12 09:23 | disposition home or self-care (01) ==
LOC: HO.HMCH 08:32
PROVIDERS: PCP Internal Medicine; Visit Provider Internal Medicine
DX: Z00.00 Encounter for general adult medical examination without abnormal findings (principal); K21.9 Gastro-esophageal reflux disease without esophagitis

== ENCOUNTER 2025-04-20 14:11 | Outpatient (AMB) | payer OTHER, SELFPAY ==
--- NOTE | 2025-04-20 14:32 | MHC.OFFWIV ---
Intake Vital Signs 04/20/25 14:35 Height 5 ft 6 in Weight 138 lb BMI 22.3 BP 120/64 Blood Pressure Location Lt brachial Position Sitting Pulse 73 Pulse Source Pulse Oximeter Temp 98.0 F Temp Source Oral Pulse Oximetry (%) 99 Oxygen Delivery Method Room Air Intake Visit Reasons: ep pain rt pelvic area [phone] Intake Note: pt presents with pain to RLQ and Right lower back, minimal straining with peeing, recent concern for constipation - on Miralax x3 days Patient Tobacco Use Status: Never used Tobacco Allergies No Known Allergies (No Known Allergies*) Allergy (Verified 04/20/25 14:32) Medication List - Last Reconciled 04/20/25 by Violeta Sullivan MD No Known Home Meds Do you need a note to return to daycare/school/sports/work: No HPI HPI Comments History of Present Illness Details The patient is a 29-year-old male presenting with right lower quadrant abdominal pain. Right Lower Quadrant Abdominal Pain: - Initially experienced severe pain on Wednesday; pain has since decreased in intensity. - Pain rated 2-3/10 currently; exacerbated by physical activity - Pain does not radiate to the scrotum - No associated fever, chills, nausea, vomiting, urinary symptoms, or testicular pain. - Still has his appendix - Has associated right midback pain which he believes is muscular in etiology which has also been improving - Denies any blood in the urine. Denies dysuria, urinary frequency, or urinary urgency. - Denies concern for STDs Constipation: - Reports constipation; no blood in stools reports - Recent onset; correlates with experience of abdominal pain. - MiraLax initiated; patient has been having regular bowel movements daily since onset of medication. History of Cholecystectomy: - Underwent gallbladder removal in August. [facility] Medical History (Updated 01/12/25 @ 09:23 by Juan Vega MD) Abdominal pain Constipation Surgical History (Updated 01/12/25 @ 09:10 by Juan Vega MD) History of colonoscopy History of laparoscopic cholecystectomy (08/07/24) Family History Mother No problems noted. Father Gall bladder pain Asthma Family/Other Heart problem Social History (Reviewed 07/11/25 @ 08:35 by ANALISA Lujan Housing: House Alcohol intake: current Alcohol intake frequency: does not drink Patient Tobacco Use Status: Never used Tobacco e-Cigarette/Vaping Use: Never Used Second Hand Smoke Exposure: Yes service: No Current occupational status: employed Cognitive needs: No Hearing needs: No Vision needs: No Review of Systems Const Denies chills and Denies fever(s) GI Reports abdominal pain, Denies hematochezia, Reports constipation, Denies nausea and Denies vomiting Denies hematuria, Denies difficulty urinating, Denies penile discharge, Denies testicular pain, Denies urinary frequency and Denies urinary urgency Physical Exam Vital Signs: Last Vital Signs Temp 98.0 F 04/20/25 14:35 Pulse 73 04/20/25 14:35 BP 120/64 04/20/25 14:35 Pulse Ox 99 04/20/25 14:35 Oxygen Delivery Method Room Air 04/20/25 14:35 BMI result Body Mass Index 22.3 Const General: healthy appearing, no acute distress and well developed GI Other: No significant tenderness to palpation of the right lower quadrant. No rebound tenderness. No guarding. Negative Rovsing and obturator sign. 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 No right inguinal hernia palpated Back/Spine/Pelvis Other: No spinal tenderness to palpation. Mild right thoracic paraspinal tenderness to palpation. No CVA tenderness. Results AMB Urinalysis, Automated UA Leukoctes 0 Anh/uL Last Edit by Charo Talley MA on 04/20/25 14:54 UA Nitrite Negative Last Edit by Charo Talley MA on 04/20/25 14:54 UA Urobilinogen 0.2 mg/dL Last Edit by Charo Talley MA on 04/20/25 14:54 UA Protein 0 mg/dL Last Edit by Charo Talley MA on 04/20/25 14:54 UA pH 7.0 Last Edit by Charo Talley MA on 04/20/25 14:54 UA Blood 0 Joe/uL Last Edit by Charo Talley MA on 04/20/25 14:54 UA Specific [place] 1.010 Last Edit by Charo Talley MA on 04/20/25 14:54 UA Ketone Negative Last Edit by Charo Talley MA on 04/20/25 14:54 UA Bilirubin 0 mg/dL Last Edit by Charo Talley MA on 04/20/25 14:54 UA Glucose 0 mg/dL Last Edit by Charo Talley MA on 04/20/25 14:54 Results Reviewed Results Reviewed: Laboratory Last Values Urine pH (Auto) 7.0 04/20/25 14:48 Specific [place] (Auto) 1.010 04/20/25 14:48 Urine Protein (Auto) 0 mg/dL 04/20/25 14:48 Glucose (UA)(Auto) 0 mg/dL 04/20/25 14:48 Urine Ketones (Auto) Negative 04/20/25 14:48 Urine Blood (Auto) 0 Joe/uL 04/20/25 14:48 Urine Nitrite (Auto) Negative 04/20/25 14:48 Urine Bilirubin (Auto) 0 mg/dL 04/20/25 14:48 Urine Urobilinogen (Auto) 0.2 mg/dL 04/20/25 14:48 Leukocyte Esterase (Auto) 0 Anh/uL 04/20/25 14:48 Assessment & Plan Assessment & Plan (1) Right lower quadrant pain: Code(s): R10.31 - Right lower quadrant pain Plan: - The pain appears to be decreasing in severity with a low suspicion for acute appendicitis given the improvement, absence of fever, or significant tenderness of the right lower quadrant. UA unremarkable. Low concern for UTI. Patient declined STD testing. - Discussed constipation and musculoskeletal etiology possibly contributing to symptoms. - Advised to continue MiraLax to ensure regular bowel movements. - Advise dietary adjustments to increase fiber and hydration - Tylenol as needed for pain relief - Reinforce importance of monitoring symptoms, with instructions for the patient to seek immediate care should pain intensify or if fever/nausea/vomiting, or blood in stool develop. Orders: Orders AMB Urinalysis Automated Today Z13.9 - Encounter for screening, unspecified Coding Level of Care Code Est Pt Level 3 (98001) Diagnoses Right lower quadrant pain R10.31
[2025-04-20 14:35] VITALS: BP 120/64; PULSE 73; TEMP 36.7; O2SAT 99; BMI 22.3
== END 2025-04-20 15:28 | disposition home or self-care (01) ==
PROVIDERS: PCP Internal Medicine; Visit Provider Family Medicine
DX: Z13.9 Encounter for screening, unspecified (principal); R10.31 Right lower quadrant pain
CPT/HCPCS: 99213

== ENCOUNTER → 2025-04-20 14:11 | Outpatient (BNVA) | payer OTHER, SELFPAY | PROVIDERS: PCP Internal Medicine; Visit Provider Family Medicine | DX: R10.31 Right lower quadrant pain (principal); K59.00 Constipation, unspecified | CPT/HCPCS: 81003 ==